=== PATIENT | male | born 1960 | race Caucasian/White ===

== ENCOUNTER 2018-10-27 13:00 | Inpatient (IN) | payer OTHER ==
--- NOTE | 2018-10-27 13:40 | ER Document Report ---
ED NIH Stroke Scale - NIH Stroke Scale *: 1. NIH scale should be completed with appropriate accompanying assessment tools. *: 2. The NIH should reflect what the patient is capable of doing and should not be coached by the clinician. 1a. Level of Consciousness: 0=Alert;keenly responsive -: 1=Drowsy -: 2=Obtunded -: 3=Coma/unresponsive or reflex to noxious stimuli. 1a. Responses: 0 1b. Orientation Questions: a. What month is it? -: b. How old are you? -: 0=Answers both questions correctly. -: 1=Answers one question correctly or patient is intubated or has orotracheal trauma. -: 2=Answers neither question correctly. 1b. Responses: 0 1c. Response to commands: a. Open and close eyes? -: b. Furniture Servicer and release hand? -: Credit is given despite weakness. Demonstration of task is permitted. Substitute command if hands cannot be used. -: 0=Performs both tasks correctly -: 1=Performs one task correctly -: 2=Performs neither task correctly 1c. Responses: 0 2. Gaze: Establish eye contact and instruct patient to "Follow my finger" -: 0=Normal -: 1=Partial gaze palsy. Gaze is abnormal in one or both eyes, but where forced deviation or total gaze paresis is not present. -: 2=Forced deviation or total gaze paresis. 2. Responses: 0 3. Visual Daniels: Sees fingers in all four quadrants. -: 0=No visual loss. -: 1=Partial hemianopsia. -: 2=Complete hemianopsia. -: 3=Bilateral hemianopsia (including Cortical blindness) 3. Responses: 0 4. Facial Movement: Instruct patient to: -: a. Show me your teeth -: b. Raise your eyebrows -: c. Close your eyes -: d. Smile -: 0=Normal symmetrical movement -: 1=Minor paralysis (flattened nasolabial fold, asymmetry on smiling). -: 2=Partial paralysis (total or near total paralysis of lower face). -: 3=Complete paralysis of upper and lower face 4. Responses: 0 5. Motor functions (left arm): Alternate sides and extend each arm with palms down (90 degrees if sitting or 45 degrees for supine). -: 0=No drift;limb holds for full 10 seconds. -: 1=Drift; limb holds but drifts down before full 10 seconds, but does not hit bed. -: 2=Some effort against gravity; limb cannot get to or maintain position. -: 3=No effort against gravity; limb falls. -: 4=No movement. -: UN=Amputation, joint fusion, explain in comments. 5. Responses (left arm): 0 5. Motor Functions (right arm): Alternate sides and extend each arm with palms down (90 degrees if sitting or 45 degrees for supine). -: 0=No drift;limb holds for full 10 seconds. -: 1=Drift; limb holds but drifts down before full 10 seconds, but does not hit bed. -: 2=Some effort against gravity; limb cannot get to or maintain position. -: 3=No effort against gravity; limb falls. -: 4=No movement. -: UN=Amputation, joint fusion, explain in comments. 5. Responses (right arm): 0 6. Motor Functions (left leg): With patient lying supine, alternate sides and extend each leg (30 degrees always while supine). -: 0=No drift, leg holds position for full 5 seconds -: 1=Drift; leg falls before full 5 seconds but does not hit bed. -: 2=Some effort against gravity, leg falls to bed but some effort against gravity. -: 3=No effort against gravity, leg falls to bed immediately. -: 4=No movement. -: UN=Amputation, joint fusion; explain in comments. 6. Responses (left leg): 0 6. Motor Functions (right leg): With patient lying supine, alternate sides and extend each leg (30 degrees always while supine). -: 0=No drift, leg holds position for full 5 seconds -: 1=Drift; leg falls before full 5 seconds but does not hit bed. -: 2=Some effort against gravity, leg falls to bed but some effort against gravity. -: 3=No effort against gravity, leg falls to bed immediately. -: 4=No movement. -: UN=Amputation, joint fusion; explain in comments. 6. Responses (right leg): 1 7. Limb Ataxia: With eyes open instruct patient to: -: a. "Touch your finger to your nose". -: b. "Touch your heel to your mercedes" -: 0=Absent -: 1=Present in one limb. -: 2=Present in two limbs. -: UN=Amputation or joint fusion; explain in comments. 7. Responses: 0 8. Sensory: Test sensation using pinprick or noxious stimuli. Test as many body parts as possible. -: 0=Normal;no sensory loss -: 1=Mile to moderate sensory loss (patient feels pin prick but is less sharp on affected side). -: 2=Severe or total sensory loss. 8. Responses: 0 9. Best Language: Instruct patient to: -: a. "Describe what you see in this picture." -: b. "Name the items in this picture." -: c. "Read these sentences." -: 0=No aphasia, normal -: 1=Mild to moderate aphasia. -: 2=Severe aphasia -: 3=Mute, global aphasia, no usable speech or auditory comprehension. 9. Responses: 0 10. Articulation, Dysarthia: Instruct patient to: -: "Read these words" or "Repeat these words" -: 0=Normal -: 1=Mild to moderate; patient may slur some words but can be understood without difficulty. -: 2=Severe; patients speech so slurred as to be unintelligible in the absence of dysphasia. -: UN=Intubated or other physical barrier, explain in comments. 10. Responses: 0 11. Extinction or inattention: 0=No abnormality -: 1= Visual, tactile, auditory, spatial, or personal inattention or extinction to bilateral simulation in one or the sensory modalities. -: 2=Profound charles-inattention or charles-inattention to more than one modality; does not recognize own hand. 11. Responses: 0 - Right now Total Score: 1
--- NOTE | 2018-10-27 13:42 | ER Document Report ---
ED Medical Screen (RME) - General Chief Complaint: Weakness Stated Complaint: NUMBNESS Time Seen by Provider: 10/27/18 13:34 Mode of Arrival: Wheelchair TRAVEL OUTSIDE OF THE [place] IN LAST 30 DAYS: No - HPI Onset: Yesterday Severity: None Pain Level: Denies Associated Symptoms: Other Exacerbated by: Denies - Falling Relieved by: Denies Similar symptoms previously: Yes Recently seen / treated by doctor: No - Related Data Allergies/Adverse Reactions: No Known Allergies Allergy (Unverified 10/27/18 13:03) Past Medical History - Social History Chew tobacco use (# tins/day): No Frequency of alcohol use: Social Drug Abuse: None - Past Medical History Cardiac Medical History: Reports: Hx Hypertension Renal/ Medical History: Denies: Hx Peritoneal Dialysis Past Surgical History: Reports: Hx Vascular Surgery - bilateral lower extremities Physical Exam - Vital signs Vitals: Temp Pulse Resp BP Pulse Ox 98.3 F 62 18 219/98 H 97 10/27/18 13:14 10/27/18 13:14 10/27/18 13:14 10/27/18 13:14 10/27/18 13:14 Course - Vital Signs Vital signs: Temp Pulse Resp BP Pulse Ox 98.3 F 62 18 219/98 H 97 10/27/18 13:14 10/27/18 13:14 10/27/18 13:14 10/27/18 13:14 10/27/18 13:14
[2018-10-27 14:10] LABS: INTERNATIONAL RATION (INR) 1.08
[2018-10-27 14:11] LABS: PARTIAL THROMBOPLASTIN TIME 31.5 SEC (23.5-35.8)
[2018-10-27 14:13] LABS: APPEARANCE,URINE CLEAR; BILIRUBIN,URINE NEGATIVE (NEGATIVE); COLOR,URINE YELLOW; GLUCOSE, URINE NEGATIVE (NEGATIVE); KETONES,URINE NEGATIVE (NEGATIVE); LEUKOCYTE ESTERASE,URINE NEGATIVE (NEGATIVE); NITRITE,URINE NEGATIVE (NEGATIVE); PROTEIN,URINE NEGATIVE (NEGATIVE); PROTHROMBIN TIME 14.1 SEC (11.4-15.4); URINE SPECIFIC GRAVITY 1.018
[2018-10-27 14:31] LABS: ALANINE AMINOTRANSFERASE 44 U/L (21-72); ALBUMIN 4.9 g/dL (3.5-5.0); ALKALINE PHOSPHATASE 82 U/L (38-126); ANION GAP 10 (5-19); ASPARTATE AMINO TRANSFERASE 43 U/L (17-59); BILIRUBIN,DIRECT 0.3 mg/dL (0.0-0.4); BILIRUBIN,TOTAL 1.6 mg/dL (0.2-1.3); BLOOD UREA NITROGEN 18 mg/dL (7-20); CALCIUM 9.8 mg/dL (8.4-10.2); CARBON DIOXIDE 30 mmol/L (22-30); CHLORIDE 102 mmol/L (98-107); GLUCOSE 88 mg/dL (75-110); POTASSIUM 3.9 mmol/L (3.6-5.0); SODIUM 142.2 mmol/L (137-145); TOTAL PROTEIN 8.5 g/dL (6.3-8.2)
--- NOTE | 2018-10-27 14:31 | RADIOLOGY REPORT (SQ) ---
EXAM DESCRIPTION: CT HEAD WITHOUT COMPLETED DATE/TIME: 10/27/2018 2:06 pm REASON FOR STUDY: Weakness right leg falling started yesterday COMPARISON: None. TECHNIQUE: Axial images acquired through the brain without intravenous contrast. Images reviewed wi th bone, brain and subdural windows. Additional sagittal and coronal reconstructions were generated. Images stored on PACS. All CT scanners at this facility use dose modulation, iterative reconstruction, and/or weight based d osing when appropriate to reduce radiation dose to as low as reasonably achievable (ALARA). [facility]: Dose Right [facility]: CareDose [facility]: Dose Right [facility]: Teradose 4D [facility]: Giraffe Friend RADIATION DOSE: CT Rad equipment meets quality standard of care and radiation dose reduction techniq ues were employed. CTDIvol: 53.2 mGy. DLP: 1070 mGy-cm. mGy. LIMITATIONS: None. FINDINGS: VENTRICLES: Normal size and contour. CEREBRUM: No CT evidence of acute large territory ischemic change, acute intracranial hemorrhage, mas s effect, or midline shift. 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 Moderate bifrontal and biparietal chronic small vessel ischemic change in the hemispheric white matte r CEREBELLUM: No masses. No hemorrhage. No alteration of density. No evidence for acute infarction. EXTRAAXIAL SPACES: No fluid collections. No masses. ORBITS AND GLOBE: No intra- or extraconal masses. Normal contour of globe without masses. CALVARIUM: No fracture. PARANASAL SINUSES: No fluid or mucosal thickening. SOFT TISSUES: No mass or hematoma. OTHER: No other significant finding. IMPRESSION: No acute findings. Significant small vessel disease with white matter, thalamic and basal ganglia infarcts EVIDENCE OF ACUTE STROKE: NO. COMMENT: Quality ID # [id number]: Final reports with documentation of one or more dose reduction techniques (e.g., Automated exposure control, adjustment of the mA and/or kV according to patient size, use of iterative reconstruction technique) TECHNICAL DOCUMENTATION: JOB ID: [id number] [employer]- All Rights Reserved Reading location - IP/workstation name: [email or web address]
[2018-10-27 16:15] LABS: ABSOLUTE LYMPHOCYTES (AUTO) 2.5 10^3/uL (0.5-4.7); ABSOLUTE MONOCYTES (AUTO) 0.3 10^3/uL (0.1-1.4); ABSOLUTE NEUT (AUTO) 1.8 10^3/uL (1.7-8.2); BASOPHILS % (AUTO) 0.2 % (0-2); EOSINOPHILS % (AUTO) 0.4 % (0-6); HEMATOCRIT 40.6 % (37.9-51.0); HEMOGLOBIN 13.7 g/dL (13.5-17.0); LYMPHOCYTES % (AUTO) 54.7 % (13-45); MEAN CORPUSCULAR HEMOGLOBIN 37.6 pg (27.0-33.4); MEAN CORPUSCULAR HGB CONC 33.8 g/dL (32.0-36.0); MONOCYTES % (AUTO) 6.6 % (3-13); RED BLOOD COUNT 3.65 10^6/uL (4.35-5.55); RED CELL DISTRIBUTION WIDTH 17.7 % (11.5-14.0); SEGMENTED NEUTROPHILS % (AUTO) 38.1 % (42-78); TOTAL CELLS COUNTED % (AUTO) 100 %; WHITE BLOOD COUNT 4.7 10^3/uL (4.0-10.5)
[2018-10-27 16:33] LABS: PLATELET COUNT 40 10^3/uL (150-450)
[2018-10-27 16:34] LABS: MEAN CORPUSCULAR VOLUME 111 fl (80-97)
[2018-10-27 16:37] LABS: ANISOCYTOSIS 2+; OVALOCYTES SLIGHT; PLATELET COMMENT DECREASED; POLYCHROMASIA SLIGHT; SCHISTOCYTES SLIGHT; STOMATOCYTES 1+
[2018-10-27] MEDS ORDERED: NICARDIPINE HCL RTU, ISO-OS 20 MG/200 ML RTUINJ IV PRN ×2 (19:01→22:23)
--- NOTE | 2018-10-27 20:07 | ER Document Report ---
ED General - General Chief Complaint: Weakness Stated Complaint: NUMBNESS Time Seen by Provider: 10/27/18 13:34 Primary Care Provider: ALEXEI FUENTES MD [Primary Care Provider] - Follow up as needed Mode of Arrival: Wheelchair TRAVEL OUTSIDE OF THE [place] IN LAST 30 DAYS: No - HPI Notes: Patient is a 4-year-old male who presents to the emergency department for evaluation of right-sided weakness. He states that about 3:00 yesterday afternoon, he noted that his right leg "was not working right." He still kept going on with his day. He did have some weakness in his right arm as well. He states he woke this morning and it was worse. He has been having falls as a result of this. Denies any pain. He denies any difficulty seeing, speaking, swallowing. He states he has had weakness and falls in the past, but denies any known focal deficits in the past. He admits that he is supposed to take high blood pressure medication, and he is not compliant with it. He initially states "I just could not find it." He does, however, have the bottle with him. - Related Data Allergies/Adverse Reactions: No Known Allergies Allergy (Unverified 10/27/18 13:03) Home Medications: irbesartan Past Medical History - General Information source: Patient - Social History Smoking Status: Current Every Day Smoker Chew tobacco use (# tins/day): No Frequency of alcohol use: None - Patient quit drinking 2 years ago, admits he was a heavy drinker in the past, has been told he has cirrhosis. Drug Abuse: None Family History: DM, Hypertension Patient has suicidal ideation: No Patient has homicidal ideation: No - Past Medical History Cardiac Medical History: Reports: Hx Hypertension Renal/ Medical History: Denies: Hx Peritoneal Dialysis GI Medical History: Reports: Hx Cirrhosis Past Surgical History: Reports: Hx Vascular Surgery - bilateral lower extremities Review of Systems - Review of Systems Constitutional: No symptoms reported EENT: No symptoms reported Cardiovascular: No symptoms reported Respiratory: No symptoms reported Gastrointestinal: No symptoms reported Genitourinary: No symptoms reported Musculoskeletal: No symptoms reported Skin: No symptoms reported Neurological/Psychological: See HPI Physical Exam - Vital signs Vitals: Temp Pulse Resp BP Pulse Ox 98.3 F 62 18 219/98 H 97 10/27/18 13:14 10/27/18 13:14 10/27/18 13:14 10/27/18 13:14 10/27/18 13:14 - Notes Notes: Vital signs reviewed, please refer to chart. Head is normocephalic, atraumatic. Pupils equal round, reactive to light. Neck is supple without meningismus. Heart is regular rate and rhythm. Lungs are clear to auscultation bilaterally. Abdomen is soft, nontender, normoactive bowel sounds throughout. Extremities without cyanosis, clubbing. Posterior calves are nontender. Peripheral pulses are equal. Skin is warm and dry. Patient is awake, alert, oriented x3. Cranial nerves II through XII are grossly intact without focal neurological deficits. Strength is plus 5 out of 5 left upper and left lower extremity. Patient does have 4 out of 5 dry paste supervisor strength on the right upper extremity, 3 out of 5 strength in the right lower extremity. Sensation is intact throughout. Pronator drift on the right noted. Mild hyperreflexia on the right as well. Intact [id number], rapid alternating movements, unable to perform [id number]-wt-agum on the right, intact on the left. Course - Re-evaluation Re-evalutation: 10/27/18 20:06 Patient is a 4-year-old male who presents to the emergency department for evaluation of right-sided weakness and frequent falls. Says symptoms have been present for greater than 24 hours at the time of my evaluation. Patient does not fact have right-sided weakness, right pronator drift. Laboratory investigations and imaging were as ordered through triage. Laboratory investigations revealed a low platelet count, elevated bilirubin. This is consistent with his diagnosis of cirrhosis. The remainder of his laboratory i nvestigations are unremarkable. CT scan did reveal multiple old infarcts, nothing acute. Patient's blood pressure was markedly elevated. He admits to me that he has not taken his blood pressure medication in over a month. My concern would be that this is a possible hypertensive encephalopathy, rather than an acute stroke. Patient was started on nicardipine drip. We will continue to follow. 10/27/18 20:47 Nicardipine drip started, no significant change in patient's neurological status. I spoke with Dr. Chaney, who will admit the patient. I am still unable to definitively rule out hypertensive encephalopathy versus CVA, patient will likely get an MRI tomorrow, and they will continue to titrate nicardipine to evaluate for effect. As he is currently on the nicardipine drip to treat his blood pressure, he will require ICU admission. - Vital Signs Vital signs: Temp Pulse Resp BP Pulse Ox 97.9 F 62 13 219/98 H 97 10/27/18 17:26 10/27/18 13:14 10/27/18 17:13 10/27/18 13:14 10/27/18 17:13 - Laboratory Result Diagrams: 10/27/18 15:41 10/27/18 13:45 Laboratory results interpreted by me: 10/27/18 10/27/18 10/27/18 13:45 13:45 15:41 RBC 3.65 L MCV 111 H MCH 37.6 H RDW 17.7 H Plt Count 40 L Seg Neutrophils % 38.1 L Lymphocytes % 54.7 H Total Bilirubin 1.6 H Total Protein 8.5 H Urine Urobilinogen 2.0 H - Diagnostic Test Radiology reviewed: Reports reviewed Radiology results interpreted by me: 10/27/18 20:[address] 10/27/18 13:34 IMPRESSION: No acute findings. Significant small vessel disease with white matter, thalamic and basal ganglia infarcts EVIDENCE OF ACUTE STROKE: NO. - EKG Interpretation by Me Additional EKG results interpreted by me: 10/27/18 20:50 Sinus bradycardia with a rate of 59 bpm. Left axis deviation, IVCD. Number specific ST changes, but no acute changes concerning for ischemia or infarction. No old studies available for comparison. Discharge - Discharge Clinical Impression: Hypertensive emergency CVA (cerebrovascular accident) Qualifiers: CVA mechanism: unspecified Qualified Code(s): I63.9 - Cerebral infarction, unspecified Condition: Stable Disposition: ADMITTED INPATIENT Admitting Provider: Ritu (Hospitalist) Unit Admitted: ICU Referrals: ALEXEI FUENTES MD [Primary Care Provider] - Follow up as needed
--- NOTE | 2018-10-27 22:16 | RADIOLOGY REPORT (SQ) ---
EXAM DESCRIPTION: [facility]: XR HIP 2 OR MORE VIEWS Views: 2, AP pelvis and additional view of the right hip CLINICAL HISTORY: 58 years Male, fall; right hip pain COMPARISON: None. FINDINGS: Pelvic alignment is anatomic. No diastasis. No acute fracture. Right iliac stent and bilateral inguinal surgical clips are noted. There are extensive vascular calcifications. Right hip: No fracture or dislocation. IMPRESSION: 1. No acute findings. 2. Atherosclerosis
[2018-10-27] MEDS ORDERED: ACETAMINOPHEN 325 MG TABLET PO PRN (22:23)
[2018-10-27] MEDS ORDERED: ACETAMINOPHEN 650 MG SUPP.RECT PR PRN (22:23)
[2018-10-27] MEDS ORDERED: DOCUSATE SODIUM 100 MG CAPSULE PO PRN (22:23)
[2018-10-27] MEDS ORDERED: MAGNESIUM HYDROXIDE SUSP 30 ML UDCUP PO PRN (22:23)
[2018-10-27] MEDS ORDERED: ONDANSETRON 4 MG TAB.RAPDIS PO PRN (22:23)
[2018-10-27] MEDS ORDERED: ONDANSETRON HCL INJ/PF 4 MG/2 ML SDV IV PRN (22:23)
[2018-10-27] MEDS ORDERED: LEVALBUTEROL HCL NEB 0.63 MG/3 ML AMPUL NEB PRN (22:38)
[2018-10-27] MEDS ORDERED: NALBUPHINE HCL INJ 10 MG/1 ML AMPULE IV PRN (22:38)
[2018-10-27] MEDS ORDERED: NICOTINE 21 MG/24 HR PATCH.TD24 TD PRN (22:38)
[2018-10-27] MEDS: TEMAZEPAM 15 MG CAPSULE PO PRN (22:55)
--- NOTE | 2018-10-27 22:58 | EKG REPORT ---
SEVERITY:- ABNORMAL ECG - SINUS RHYTHM NONSPECIFIC INTRAVENTRICULAR CONDUCTION DELAY : Confirmed by: Zane Rogers 27-Oct-2018 22:57:48
[2018-10-27] MEDS ORDERED: POTASSI CL IV ONE ×2 (23:00)
[2018-10-27] MEDS ORDERED: FAMOTIDINE 20 MG TABLET PO ONE (23:00)
[2018-10-27] MEDS ORDERED: THIAMINE HCL IV ONE ×2 (23:00)
[2018-10-27] MEDS ORDERED: NS IV ONE ×2 (23:00)
[2018-10-27] MEDS ORDERED: MAGNESIUM SULFATE INJ 8 MEQ/2 ML IV ONE (23:00)
[2018-10-27] MEDS ORDERED: MVI, ADULT NO.1 WITH VIT K INJ 10 ML VIAL IV ONE (23:00)
[2018-10-27] MEDS ORDERED: ATORVASTATIN CALCIUM 40 MG TABLET PO ONE (23:00)
[2018-10-27] MEDS: HYDRALAZINE HCL INJ/PF 20 MG/1 ML SDV IV PRN (23:09)
[2018-10-27 23:20] LABS: CREATINE KINASE MB 0.98 ng/mL (<4.55)
[2018-10-27 23:22] LABS: TROPONIN I < 0.012 ng/mL
[2018-10-27 23:26] LABS: FREE T3 4.09 pg/mL (2.77-5.27); FREE T4 (FREE THYROXINE) 1.23 ng/dL (0.78-2.19)
[2018-10-28] MEDS ORDERED: ATORVASTATIN CALCIUM 40 MG TABLET PO ONE (00:40)
[2018-10-28] MEDS ORDERED: CYANOCOBALAMIN (VITAMIN B-12) INJ 1000 MCG/1 ML VIAL IM ONE ×2 (00:40→03:00)
[2018-10-28] MEDS ORDERED: FOLIC ACID 1 MG TABLET PO ONE (00:45)
[2018-10-28] MEDS ORDERED: THIAMINE HCL INJ 200 MG/2 ML VIAL IM ONE ×2 (00:45→03:00)
[2018-10-28] MEDS ORDERED: METOPROLOL TARTRATE PF/INJ 5 MG/5 ML SDV IV PRN (01:33)
--- NOTE | 2018-10-28 01:46 | PDOC H&P ---
History of Present Illness Admission Date/PCP: 10/27/18 21:01 ALEXEI FUENTES MD Patient complains of: Right-sided weakness History of Present Illness: DARIA PATEL is a 58 year old [id number] male who presents the emergency room with a 1 day history of right-sided weakness. He admits that at about 3 PM yesterday afternoon he was at work and noticed that his right leg was weak and not supporting him correctly as he walked. He pushed on to finish the rest of the day at work noticing that he had also developed some lifting weakness in his right arm. The symptoms persisted after work and he went home and eventually went to bed waking this morning with worse weakness of the right upper and lower extremities then previous. He tried to get up out of bed and fell without injury. He admits to not taking his high blood pressure medication for the past few weeks. He denies prior similar symptoms of focal weakness and has not identified any aggravating or ameliorating factors for his weakness. In the emergency room he was found to have right-sided weakness with a negative CT scan of the head for acute bleed or obvious infarction. He was also noted to have uncontrolled hypertension and was placed on a nicardipine infusion to control his hypertension. He was subsequently admitted to the hospital for further evaluation and treatment. Past Medical History Cardiac Medical History: Reports: Hypertension, Peripheral Vascular Disease Denies: Atrial Fibrillation, Congestive Heart Failure, Coronary Artery Disease, DVT, Myocardial Infarction, Hyperlipidema, Pulmonary Embolism Pulmonary Medical History: Denies: Asthma, Chronic Obstructive Pulmonary Disease (COPD), Respiratory Failure EENT Medical History: Denies: Cataracts, Ears - Hearing aids Neurological Medical History: Denies: Hemorrhagic CVA, Ischemic CVA, Multiple Sclerosis, Seizures Endocrine Medical History: Reports: Obesity Denies: Diabetes Mellitus Type 1, Diabetes Mellitus Type 2, Hyperthyroidism, Hypothyroidism Renal/ Medical History: Denies: Chronic Kidney Disease, Nephrolithiasis Malignancy Medical History: Reports: None GI Medical History: Denies: Cirrhosis, Crohn's Disease, Hepatitis, Ulcerative Colitis Musculoskeltal Medical History: Denies: Arthritis, Gout Skin Medical History: Denies: Eczema, Psoriasis Psychiatric Medical History: Reports: Tobacco Dependency Denies: Alcohol Dependency, Substance Abuse Traumatic Medical History: Reports: None Hematology: Denies: Anemia, Bleeding Tendencies Infectious Medical History: Reports: None Past Surgical History Past Surgical History: Reports: Vascular Surgery - bilateral lower extremities Social History Information Source: Patient Lives with: Spouse/Significant other Smoking Status: Current Every Day Smoker Frequency of Alcohol Use: Social Hx Recreational Drug Use: No Drugs: None Hx Prescription Drug Abuse: No - Advance Directive Resuscitation Status: Full Code Surrogate healthcare decision maker:: Any Patel his Family History Family History: DM, Hypertension Parental Family History Reviewed: Yes Children Family History Reviewed: No Sibling(s) Family History Reviewed.: Yes Medication/Allergy Allergies/Adverse Reactions: No Known Allergies Allergy (Unverified 10/27/18 13:03) Review of Systems Constitutional: ABSENT: chills, fever(s) Eyes: ABSENT: visual disturbances, other - Eye pain Ears: ABSENT: hearing changes, other - Ear pain Nose, Mouth, and Throat: ABSENT: mouth pain, sore throat Cardiovascular: ABSENT: chest pain, palpitations Respiratory: ABSENT: cough, dyspnea Gastrointestinal: ABSENT: abdominal pain, constipation, diarrhea, dysphagia, melena, vomiting Genitourinary: ABSENT: dysuria, hematuria Musculoskeletal: ABSENT: back pain, joint swelling, muscle weakness Integumentary: ABSENT: pruritus, rash Neurological: PRESENT: as per HPI, abnormal gait, focal weakness, lack of coordination. ABSENT: abnormal movements, abnormal speech, confusion, convulsions, dizziness, memory loss, numbness, paresthesias, syncope, tremor(s), vertigo Psychiatric: ABSENT: anxiety, depression Endocrine: ABSENT: cold intolerance, heat intolerance Hematologic/Lymphatic: ABSENT: easy bleeding, easy bruising Physical Exam Vital Signs: Temp Pulse Resp BP Pulse Ox 97.9 F 62 13 219/98 H 97 10/27/18 17:26 10/27/18 13:14 10/27/18 17:13 10/27/18 13:14 10/27/18 17:13 Intake & Output 10/25/18 10/26/18 10/27/18 23:59 23:59 23:59 Weight 85.9 kg General appearance: PRESENT: no acute distress, cooperative, obese Head exam: PRESENT: atraumatic, normocephalic Eye exam: PRESENT: EOMI. ABSENT: conjunctival injection, nystagmus, scleral i cterus Ear exam: PRESENT: normal external ear exam. ABSENT: bleeding, drainage Mouth exam: PRESENT: dry mucosa, neck supple Neck exam: ABSENT: JVD, thyromegaly, tracheal deviation Respiratory exam: PRESENT: clear to auscultation bruno, symmetrical, unlabored Cardiovascular exam: PRESENT: RRR. ABSENT: clicks, gallop, rubs Pulses: PRESENT: normal radial pulses, normal dorsalis pedis pul Vascular exam: PRESENT: normal capillary refill. ABSENT: pallor GI/Abdominal exam: PRESENT: normal bowel sounds, soft. ABSENT: tenderness Rectal exam: PRESENT: deferred Extremities exam: ABSENT: joint swelling, pedal edema, tenderness Musculoskeletal exam: ABSENT: deformity, dislocation Neurological exam: PRESENT: alert, oriented to person, oriented to place, oriented to time, oriented to situation, CN II-XII grossly intact, motor sensory deficit - Weakness of right upper and lower extremities noted by comparison to left on gross exam. Psychiatric exam: PRESENT: appropriate affect, normal mood Skin exam: PRESENT: dry, intact, warm. ABSENT: jaundice, rash, urticaria Results Laboratory Results: 10/27/18 15:41 10/27/18 13:45 10/27/18 10/27/18 10/27/18 13:45 13:45 13:45 WBC Cancelled RBC Cancelled Hgb Cancelled Hct Cancelled MCV Cancelled MCH Cancelled MCHC Cancelled RDW Cancelled Plt Count Cancelled Seg Neutrophils % Cancelled Lymphocytes % Cancelled Monocytes % Cancelled Eosinophils % Cancelled Basophils % Cancelled Absolute Neutrophils Cancelled Absolute Lymphocytes Cancelled Absolute Monocytes Cancelled Absolute Eosinophils Cancelled Absolute Basophils Cancelled Sodium 142.2 Potassium 3.9 Chloride 102 Carbon Dioxide 30 Anion Gap 10 BUN 18 Creatinine 1.06 Est GFR ( Amer) > 60 Est GFR (Non-Af Amer) > 60 Glucose 88 Calcium 9.8 Total Bilirubin 1.6 H AST 43 ALT 44 Alkaline Phosphatase 82 Total Protein 8.5 H Albumin 4.9 Urine Color YELLOW Urine Appearance CLEAR Urine pH 7.0 Ur Specific [place] 1.018 Urine Protein NEGATIVE Urine Glucose (UA) NEGATIVE Urine Ketones NEGATIVE Urine Blood NEGATIVE Urine Nitrite NEGATIVE Ur Leukocyte Esterase NEGATIVE Urine WBC (Auto) 1 Urine RBC (Auto) 3 10/27/18 15:41 WBC 4.7 RBC 3.65 L Hgb 13.7 Hct 40.6 MCV 111 H MCH 37.6 H MCHC 33.8 RDW 17.7 H Plt Count 40 L Seg Neutrophils % 38.1 L Lymphocytes % 54.7 H Monocytes % 6.6 Eosinophils % 0.4 Basophils % 0.2 Absolute Neutrophils 1.8 Absolute Lymphocytes 2.5 Absolute Monocytes 0.3 Absolute Eosinophils 0.0 Absolute Basophils 0.0 Sodium Potassium Chloride Carbon Dioxide Anion Gap BUN Creatinine Est GFR ( Amer) Est GFR (Non-Af Amer) Glucose Calcium Total Bilirubin AST ALT Alkaline Phosphatase Total Protein Albumin Urine Color Urine Appearance Urine pH Ur Specific [place] Urine Protein Urine Glucose (UA) Urine Ketones Urine Blood Urine Nitrite Ur Leukocyte Esterase Urine WBC (Auto) Urine RBC (Auto) 10/27/18 13:45 CK-MB (CK-2) 1.12 Impressions: Head CT 10/27/18 13:34 IMPRESSION: No acute findings. Significant small vessel disease with white matter, thalamic and basal ganglia infarcts EVIDENCE OF ACUTE STROKE: NO. Assessment and Plan - Diagnosis (1) Neurologic deficit due to acute ischemic cerebrovascular accident (CVA) Is this a current diagnosis for this admission?: Yes Plan: Patient will be admitted to the [facility] and he will be placed on the stroke protocol for evaluation. He will have an MRI of the brain, a carotid Doppler evaluation and an echocardiogram performed. He will be evaluated and treated by the stroke team including PT, OT and speech therapy. (2) Hypertensive emergency Is this a current diagnosis for this admission?: Yes Plan: Patient will be admitted to the [facility] and hydralazine as well as metoprolol will be given every 4 hours intravenously as needed to establish adequate blood pressure control (160/100). Patient will be restarted on oral antihypertensives in the AM. Daily CBC, metabolic profile and magnesium levels will be obtained as part of his ongoing evaluation. His blood pressure will be monitored closely throughout the remainder of his hospital course. (3) Tobacco use disorder, severe, dependence Is this a current diagnosis for this admission?: Yes Plan: Smoking cessation has been advised and counseled briefly. Nicotine patch will be available to the patient for his use if he desires. (4) Obesity (BMI 30-39.9) Is this a current diagnosis for this admission?: Yes Plan: Consultation with dietitian will be obtained for providing the patient with better dietary choices and better lifestyle choices for a longer and healthier life. - Time Time Spent with patient: 25-34 minutes Smoking Cessation Education: 3 to 10 minutes Medications reviewed and adjusted accordingly: Yes - Not taking medications Anticipated discharge: Acute Rehab - Inpatient Certification Based on my medical assessment, after consideration of the patient's comorbidities, presenting symptoms, or acuity I expect that the services needed warrant INPATIENT care.: Yes I certify that my determination is in accordance with my understanding of Medicare's requirements for reasonable and necessary INPATIENT services [42 CFR 412.3e].: Yes Medical Necessity: Significant Comorbidiites Make Outpatient Treatment Too Risky, Need Close Monitoring Due to Risk of Patient Decompensation, Need For Continuous Telemetry Monitoring, Need for Neurological Checks, Risk of Complication if Not Cared For in Hospital
--- NOTE | 2018-10-28 01:49 | ADVANCED CARE ---
- Diagnosis (1) Neurologic deficit due to acute ischemic cerebrovascular accident (CVA) Diagnosis Current: Yes (2) Hypertensive emergency Diagnosis Current: Yes (3) Tobacco use disorder, severe, dependence Diagnosis Current: Yes (4) Obesity (BMI 30-39.9) Diagnosis Current: Yes Attendance: Patient and myself Resuscitation Status: Full Code Discussion: After discussion the patient is determined he wishes to remain full code resuscitation status as his CODE STATUS for the remainder of his hospital course in the event over cardiac or respiratory arrest. Additionally he has named Any Franklin his as his designated surrogate medical decision-maker. He was not interested in discussing living Lopez at the time of our talk. Care Planning Goals: 1. Patient remain a full code resuscitation CODE STATUS for the remainder of his hospital course 2. Any Franklin will be designated as the patient's surrogate medical decision maker. Document(s) Completed: The following entries will be made in the patient's current medical orders and permanent medical record via EMR entry: 1. Patient remain a full code resuscitation CODE STATUS for the remainder of his hospital course 2. Any Franklin will be designated as the patient's surrogate medical decision maker. Time Spent: 7 minutes
[2018-10-28 01:58] LABS: FOLATE 10.4 ng/mL (>2.76)
[2018-10-28] MEDS ORDERED: METOPROLOL TARTRATE PF/INJ 5 MG/5 ML SDV IV SCH (02:00)
[2018-10-28] MEDS ORDERED: NS IV ONE ×2 (03:00)
[2018-10-28] MEDS ORDERED: THIAMINE HCL IV ONE ×2 (03:00)
[2018-10-28] MEDS ORDERED: MAGNESIUM SULFATE INJ 8 MEQ/2 ML IV ONE (03:00)
[2018-10-28] MEDS ORDERED: FAMOTIDINE 20 MG TABLET PO ONE (03:00)
[2018-10-28] MEDS ORDERED: POTASSI CL IV ONE ×2 (03:00)
[2018-10-28] MEDS ORDERED: MVI, ADULT NO.1 WITH VIT K INJ 10 ML VIAL IV ONE ×2 (03:00→03:08)
[2018-10-28 05:02] LABS: HEMATOCRIT 38.5 % (37.9-51.0); HEMOGLOBIN 13.3 g/dL (13.5-17.0); MEAN CORPUSCULAR HEMOGLOBIN 37.8 pg (27.0-33.4); MEAN CORPUSCULAR HGB CONC 34.5 g/dL (32.0-36.0); MEAN CORPUSCULAR VOLUME 110 fl (80-97); RED BLOOD COUNT 3.51 10^6/uL (4.35-5.55); RED CELL DISTRIBUTION WIDTH 17.1 % (11.5-14.0); WHITE BLOOD COUNT 4.8 10^3/uL (4.0-10.5)
[2018-10-28 05:21] LABS: ANION GAP 10 (5-19); BLOOD UREA NITROGEN 17 mg/dL (7-20); CALCIUM 9.6 mg/dL (8.4-10.2); CARBON DIOXIDE 23 mmol/L (22-30); CHLORIDE 104 mmol/L (98-107); CHOLESTEROL 203.15 mg/dL (0-200); CREATINE KINASE 192 U/L (55-170); GLUCOSE 110 mg/dL (75-110); POTASSIUM 3.7 mmol/L (3.6-5.0); SODIUM 137.4 mmol/L (137-145); TRIGLYCERIDES 247 mg/dL (<150)
[2018-10-28 05:35] LABS: CREATINE KINASE MB 1.42 ng/mL (<4.55); DIRECT LDL 119 mg/dL (<100)
[2018-10-28 05:36] LABS: VLDL CHOLESTEROL 49.4 mg/dL (10-31)
[2018-10-28 05:37] LABS: PLATELET COUNT 33 10^3/uL (150-450); TROPONIN I < 0.012 ng/mL
[2018-10-28] MEDS ORDERED: HEPARIN SOD (PORCINE) 5,000 UNIT/ML 1 ML SYRINGE SUBCUT SCH (06:00)
[2018-10-28] MEDS: HYDRALAZINE HCL INJ/PF 20 MG/1 ML SDV IV PRN (06:45)
--- NOTE | 2018-10-28 09:33 | PDOC PROGRESS REPORT ---
Subjective Progress Note for:: 10/28/18 Subjective:: 58 year old [id number] male who presents the emergency room with a 1 day history of right-sided weakness. He admits that at about 3 PM yesterday afternoon he was at work and noticed that his right leg was weak and not supporting him correctly as he walked. He pushed on to finish the rest of the day at work noticing that he had also developed some lifting weakness in his right arm. The symptoms persisted after work and he went home and eventually went to bed waking this morning with worse weakness of the right upper and lower extremities then previous. He tried to get up out of bed and fell without injury. He admits to not taking his high blood pressure medication for the past few weeks. He denies prior similar symptoms of focal weakness and has not identified any aggravating or ameliorating factors for his weakness. In the emergency room he was found to have right-sided weakness with a negative CT scan of the head for acute bleed or obvious infarction. He was also noted to have uncontrolled hypertension and was placed on a nicardipine infusion to control his hypertension. He was subsequently admitted to the hospital for further eval uation and treatment. Reason For Visit: HYPERTENSIVE EMERGENCY, ACUTE LEFT MIDDLE CEREBRAL Physical Exam Vital Signs: Temp Pulse Resp BP Pulse Ox 97.7 F 87 20 189/74 H 100 10/28/18 07:48 10/28/18 08:00 10/28/18 08:00 10/28/18 08:00 10/28/18 08:00 Intake & Output 10/27/18 10/28/18 10/29/18 06:59 06:59 06:59 Intake Total 110 Balance 110 Weight 80 kg General appearance: PRESENT: no acute distress, cooperative, well-nourished Head exam: PRESENT: atraumatic Eye exam: PRESENT: PERRLA Mouth exam: PRESENT: moist, tongue midline Teeth exam: PRESENT: poor dentation Neck exam: ABSENT: carotid bruit, JVD, lymphadenopathy, thyromegaly Respiratory exam: PRESENT: decreased breath sounds Cardiovascular exam: PRESENT: RRR. ABSENT: diastolic murmur, rubs, systolic murmur GI/Abdominal exam: PRESENT: normal bowel sounds, soft. ABSENT: distended, guarding, mass, organolmegaly, rebound, tenderness Rectal exam: PRESENT: deferred Extremities exam: PRESENT: full ROM. ABSENT: calf tenderness, clubbing, pedal edema Neurological exam: PRESENT: alert, awake, oriented to person, oriented to place, oriented to time, oriented to situation, other - Patient has right-sided weakness power in the right upper extremity is 2 /5 right lower extremity is 2/ 5 also. Psychiatric exam: PRESENT: appropriate affect, normal mood. ABSENT: homicidal ideation, suicidal ideation Results Laboratory Results: 10/28/18 04:40 10/28/18 04:40 10/27/18 10/27/18 10/27/18 13:45 13:45 13:45 WBC Cancelled RBC Cancelled Hgb Cancelled Hct Cancelled MCV Cancelled MCH Cancelled MCHC Cancelled RDW Cancelled Plt Count Cancelled Seg Neutrophils % Cancelled Lymphocytes % Cancelled Monocytes % Cancelled Eosinophils % Cancelled Basophils % Cancelled Absolute Neutrophils Cancelled Absolute Lymphocytes Cancelled Absolute Monocytes Cancelled Absolute Eosinophils Cancelled Absolute Basophils Cancelled Sodium 142.2 Potassium 3.9 Chloride 102 Carbon Dioxide 30 Anion Gap 10 BUN 18 Creatinine 1.06 Est GFR ( Amer) > 60 Est GFR (Non-Af Amer) > 60 Glucose 88 Calcium 9.8 Magnesium Total Bilirubin 1.6 H AST 43 ALT 44 Alkaline Phosphatase 82 Total Protein 8.5 H Albumin 4.9 Triglycerides Cholesterol LDL Cholesterol Direct VLDL Cholesterol HDL Cholesterol Vitamin B12 Folate TSH Free T4 Free T3 pg/mL Urine Color YELLOW Urine Appearance CLEAR Urine pH 7.0 Ur Specific Daisy 1.018 Urine Protein NEGATIVE Urine Glucose (UA) NEGATIVE Urine Ketones NEGATIVE Urine Blood NEGATIVE Urine Nitrite NEGATIVE Ur Leukocyte Esterase NEGATIVE Urine WBC (Auto) 1 Urine RBC (Auto) 3 10/27/18 10/27/18 10/27/18 15:41 22:40 22:40 WBC 4.7 RBC 3.65 L Hgb 13.7 Hct 40.6 MCV 111 H MCH 37.6 H MCHC 33.8 RDW 17.7 H Plt Count 40 L Seg Neutrophils % 38.1 L Lymphocytes % 54.7 H Monocytes % 6.6 Eosinophils % 0.4 Basophils % 0.2 Absolute Neutrophils 1.8 Absolute Lymphocytes 2.5 Absolute Monocytes 0.3 Absolute Eosinophils 0.0 Absolute Basophils 0.0 Sodium Potassium Chloride Carbon Dioxide Anion Gap BUN Creatinine Est GFR ( Amer) Est GFR (Non-Af Amer) Glucose Calcium Magnesium Total Bilirubin AST ALT Alkaline Phosphatase Total Protein Albumin Triglycerides Cholesterol LDL Cholesterol Direct VLDL Cholesterol HDL Cholesterol Vitamin B12 202.0 L Folate 10.40 TSH Free T4 1.23 Free T3 pg/mL 4.09 Urine Color Urine Appearance Urine pH Ur Specific Daisy Urine Protein Urine Glucose (UA) Urine Ketones Urine Blood Urine Nitrite Ur Leukocyte Esterase Urine WBC (Auto) Urine RBC (Auto) 10/28/18 10/28/18 10/28/18 04:40 04:40 04:40 WBC 4.8 RBC 3.51 L Hgb 13.3 L Hct 38.5 MCV 110 H MCH 37.8 H MCHC 34.5 RDW 17.1 H Plt Count 33 L Seg Neutrophils % Lymphocytes % Monocytes % Eosinophils % Basophils % Absolute Neutrophils Absolute Lymphocytes Absolute Monocytes Absolute Eosinophils Absolute Basophils Sodium 137.4 Potassium 3.7 Chloride 104 Carbon Dioxide 23 Anion Gap 10 BUN 17 Creatinine 1.11 Est GFR ( Amer) > 60 Est GFR (Non-Af Amer) > 60 Glucose 110 Calcium 9.6 Magnesium 2.0 Total Bilirubin AST ALT Alkaline Phosphatase Total Protein Albumin Triglycerides 247 H Cholesterol 203.15 H LDL Cholesterol Direct 119 H VLDL Cholesterol 49.4 H HDL Cholesterol 32 L Vitamin B12 Folate TSH 4.06 Free T4 Free T3 pg/mL Urine Color Urine Appearance Urine pH Ur Specific Daisy Urine Protein Urine Glucose (UA) Urine Ketones Urine Blood Urine Nitrite Ur Leukocyte Esterase Urine WBC (Auto) Urine RBC (Auto) 10/27/18 10/27/18 10/27/18 13:45 22:40 22:40 Creatine Kinase 170 CK-MB (CK-2) 1.12 0.98 Troponin I < 0.012 10/28/18 10/28/18 04:40 04:40 Creatine Kinase 192 H CK-MB (CK-2) 1.42 Troponin I < 0.012 Impressions: Hip/Pelvis X-Ray 10/27/18 00:00 IMPRESSION: 1. No acute findings. 2. Atherosclerosis Head CT 10/27/18 13:34 IMPRESSION: No acute findings. Significant small vessel disease with white matter, thalamic and basal ganglia infarcts EVIDENCE OF ACUTE STROKE: NO. Assessment and Plan - Diagnosis (1) CVA (cerebrovascular accident) Qualifiers: CVA mechanism: unspecified Qualified Code(s): I63.9 - Cerebral infarction, unspecified Is this a current diagnosis for this admission?: Yes Plan: Patient will be admitted to the [facility] and he will be placed on the stroke protocol for evaluation. He will have an MRI of the brain, a carotid Doppler evaluation and an echocardiogram performed. He will be evaluated and treated by the stroke team including PT, OT and speech therapy. 10/28/[id number]-jjsy-old male with multiple medical problems including hypertension, cirrhosis of the liver admitted with right-sided weakness CT head was negative for acute pathology he has multiple stents placement in the lower extremities and the above aortic waiting for the further information from [place] about the stents prior to doing the MRI. In the meantime we are going to do the CTA of the neck and head today. PT consult OT consult rehab consult was requested. Patient platelet count is 33,000 because of the risk of bleeding he is not getting heparin or Plavix. Presently receiving simvastatin. Lipid panel was done. Aspiration fall seizure precautions are requested. GI prophylaxis was initiated. (2) Hypertensive emergency Is this a current diagnosis for this admission?: Yes Plan: Patient will be admitted to the [facility] and hydralazine as well as metoprolol will be given every 4 hours intravenously as needed to establish adequate blood pressure control (160/100). Patient will be restarted on oral antihypertensives in the AM. Daily CBC, metabolic profile and magnesium levels will be obtained as part of his ongoing evaluation. His blood pressure will be monitored closely throughout the remainder of his hospital course. 10/28/2018-patient's blood pressures are still elevated this morning he is on IV hydralazine as needed and metoprolol IV as needed. Blood pressure this morning is 180/95 started on amlodipine 10 mg daily and lisinopril 10 mg daily. To continue to closely monitor his blood pressures. Also plan is to not to rapidly bring the blood pressure close to normal. (3) Obesity (BMI 30-39.9) Is this a current diagnosis for this admission?: Yes Plan: Consultation with dietitian will be obtained for providing the patient with better dietary choices and better lifestyle choices for a longer and healthier life. 10/28/2018-diet exercise lifestyle modifications are discussed with the patient. Dietary consult was in place. (4) Tobacco use disorder, severe, dependence Is this a current diagnosis for this admission?: Yes Plan: Smoking cessation has been advised and counseled briefly. Nicotine patch will be available to the patient for his use if he desires. 10/28/2018-patient is a chronic smoker with history of more than 40 years of smoking. Smoking counseling was advised again today. (5) Acquired thrombocytopenia Is this a current diagnosis for this admission?: Yes Plan: 10/28/2018-patient's platelet count is 33,000 today most likely secondary to cirrhosis of the liver. (6) Cirrhosis of liver Is this a current diagnosis for this admission?: No Plan: 10/28/2018-patient given the history of cirrhosis of the liver. He admitted that he is to drink heavy . - Time Time Spent with patient: 25-34 minutes Smoking Cessation Education: over 10 minutes Medications reviewed and adjusted accordingly: Yes Anticipated discharge: SNF
[2018-10-28 10:49] LABS: CREATINE KINASE MB 1.78 ng/mL (<4.55)
[2018-10-28 10:52] LABS: TROPONIN I < 0.012 ng/mL
[2018-10-28 11:16] LABS: PATH REVIEW PATHOLOGIST REVIEWED
[2018-10-28] MEDS: LISINOPRIL 10 MG TABLET PO SCH (11:27)
[2018-10-28] MEDS: FAMOTIDINE 20 MG TABLET PO SCH ×2 (11:27→21:44)
[2018-10-28] MEDS: AMLODIPINE BESYLATE 10 MG TABLET PO SCH (11:28)
[2018-10-28] MEDS: METOPROLOL SUCCINATE 50 MG TAB.SR.24H PO SCH (11:29)
[2018-10-28] MEDS: CYANOCOBALAMIN (VITAMIN B-12) 1,000 MCG TABLET PO SCH (11:29)
[2018-10-28] MEDS: THIAMINE HCL 100 MG TABLET PO SCH (11:29)
[2018-10-28] MEDS: FOLIC ACID 1 MG TABLET PO SCH (11:30)
[2018-10-28] MEDS: ASPIRIN 81 MG TABLET, ENT COATED PO SCH (11:34)
[2018-10-28] MEDS: CLOPIDOGREL BISULFATE 75 MG TABLET PO SCH (11:35)
--- NOTE | 2018-10-28 13:44 | RADIOLOGY REPORT (SQ) ---
EXAM DESCRIPTION: CTA NECK COMPLETED DATE/TIME: 10/28/2018 1:05 pm REASON FOR STUDY: cva COMPARISON: None. 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 Multiplanar reconstruction. 3-D MIPS and Volume-rendered imag es acquired at the workstation and saved to PACS. Images are reviewed in soft tissue, bone, lung w indows. All CT scanners at this facility use dose modulation, iterative reconstruction, and/or weight based d osing when appropriate to reduce radiation dose to as low as reasonably achievable (ALARA). [facility]: Dose Right [facility]: CareDose [facility]: Dose Right [facility]: Teradose 4D [facility]: [facility] CONTRAST TYPE AND DOSE: 80 mL Omnipaque 350- low osmolar. RENAL FUNCTION: BUN 17 creatinine 1.11. LIMITATIONS: None. FINDINGS: AORTIC ARCH: Normal three-vessel origin. Bilateral subclavian arteries are patent. No d issection. RIGHT CAROTIDS: Scattered plaque in the common carotid artery with a few calcifications. Calcified p laque in the proximal internal carotid artery with estimated 70% stenosis. RIGHT VERTEBRAL: Dense calcifications throughout the vessel. Very little contrast visible in the lum en. LEFT CAROTIDS: Scattered plaque in the common carotid artery with a few calcifications. Calcified pl aque in the proximal internal carotid artery with estimated 80 to 90% stenosis. LEFT VERTEBRAL: Scattered calcified plaque throughout the vessel with probable high-grade stenosis in the mid vessel. OTHER: No other significant finding. OTHER: 3-D reconstructions confirm findings. IMPRESSION: 1. CALCIFIED PLAQUE IN THE PROXIMAL RIGHT AND LEFT INTERNAL CAROTID ARTERIES. ESTIMATED 70% STENOSIS OF THE RIGHT INTERNAL CAROTID ARTERY AND 80 TO 90% STENOSIS OF THE LEFT INTERNAL CAROTID ARTERY. 2. DENSE CALCIFICATIONS THROUGHOUT THE RIGHT VERTEBRAL ARTERY WITH VERY LITTLE CONTRAST VISIBLE IN TH E LUMEN. SUSPECT HIGH-GRADE STENOSIS AND CANNOT EXCLUDE SHORT SEGMENT OCCLUSION. 3. SCATTERED CALCIFIED PLAQUE IN THE LEFT VERTEBRAL ARTERY WITH PROBABLE HIGH-GRADE STENOSIS IN THE M ID VESSEL. COMMENT: Quality ID #[id number]: Measurements of distal internal carotid diameter were used as the denomina tor for stenosis measurement. TECHNICAL DOCUMENTATION: JOB ID: [id number] Quality ID # [id number]: Final reports with documentation of one or more dose reduction techniques (e.g., Au tomated exposure control, adjustment of the mA and/or kV according to patient size, use of iterative reconstruction technique) 2010 [employer]- All Rights Reserved Reading location - IP/workstation name: [email or web address]
--- NOTE | 2018-10-28 13:50 | RADIOLOGY REPORT (SQ) ---
EXAM DESCRIPTION: CTA HEAD COMPLETED DATE/TIME: 10/28/2018 1:05 pm REASON FOR STUDY: cva COMPARISON: None. TECHNIQUE: Post IV contrast scanning, thin section axial imaging through the brain to evaluate the a rterial structures. Source and MIP images are saved and reviewed on PACS. Advanced 3D imaging as volume-rendering, MIPs, SSD performed? yes All CT scanners at this facility use dose modulation, iterative reconstruction, and/or weight based d osing when appropriate to reduce radiation dose to as low as reasonably achievable (ALARA). [facility]: Dose Right [facility]: CareDose [facility]: Dose Right [facility]: Teradose 4D [facility]: [employer] CONTRAST TYPE AND DOSE: contrast/concentration: Isovue 350.00 mg/ml; Total Contrast Delivered: 80.0 ml; Total Saline Delivered: 75.0 ml RENAL FUNCTION: BUN 17 creatinine 1.11. LIMITATIONS: None. FINDINGS: [place] OF STONE: Heavily calcified plaque in the right and left intracranial internal car otid artery. Cannot exclude some degree of stenosis. The anterior, middle, posterior cerebral arter ies are all patent. No evidence of aneurysm or focal stenosis. POSTERIOR CIRCULATION: The distal vertebral arteries are patent as is the basilar artery. No aneurysm . BRAIN: No gross enhancing lesions as visualized. The superior cerebral hemispheres are not included in the field of view. BONES: Intact as visualized. SINUSES: No fluid or mucosal thickening. OTHER: No other significant finding. IMPRESSION: HEAVILY CALCIFIED PLAQUE IN THE RIGHT AND LEFT INTRACRANIAL INTERNAL CAROTID ARTERY. CA NNOT EXCLUDE SOME DEGREE OF STENOSIS. NO CTA EVIDENCE OF STENOSIS OR ANEURYSM OF THE [place] OF [place]. TECHNICAL DOCUMENTATION: JOB ID: [id number] Quality ID # [id number]: Final reports with documentation of one or more dose reduction techniques (e.g., Au tomated exposure control, adjustment of the mA and/or kV according to patient size, use of iterative reconstruction technique) 2010 [employer]- All Rights Reserved Reading location - IP/workstation name: [email or web address]
[2018-10-28] MEDS ORDERED: NORMAL SALINE 1000 ML 1,000 ML with POTASSIUM CHLORIDE 20 MEQ, MAGNESIUM SULFATE 8 MEQ,... IV SCH ×5 (18:00)
[2018-10-28] MEDS: ATORVASTATIN CALCIUM 40 MG TABLET PO SCH (21:45)
[2018-10-29] MEDS: LISINOPRIL 10 MG TABLET PO SCH (00:31)
[2018-10-29 04:51] LABS: ABSOLUTE LYMPHOCYTES (AUTO) 1.8 10^3/uL (0.5-4.7); ABSOLUTE MONOCYTES (AUTO) 0.4 10^3/uL (0.1-1.4); ABSOLUTE NEUT (AUTO) 2.6 10^3/uL (1.7-8.2); BASOPHILS % (AUTO) 0.3 % (0-2); EOSINOPHILS % (AUTO) 0.2 % (0-6); HEMATOCRIT 36.3 % (37.9-51.0); HEMOGLOBIN 12.6 g/dL (13.5-17.0); LYMPHOCYTES % (AUTO) 38.2 % (13-45); MEAN CORPUSCULAR HEMOGLOBIN 37.8 pg (27.0-33.4); MEAN CORPUSCULAR HGB CONC 34.6 g/dL (32.0-36.0); MEAN CORPUSCULAR VOLUME 109 fl (80-97); MONOCYTES % (AUTO) 7.7 % (3-13); RED BLOOD COUNT 3.32 10^6/uL (4.35-5.55); RED CELL DISTRIBUTION WIDTH 17.9 % (11.5-14.0); SEGMENTED NEUTROPHILS % (AUTO) 53.6 % (42-78); TOTAL CELLS COUNTED % (AUTO) 100 %; WHITE BLOOD COUNT 4.8 10^3/uL (4.0-10.5)
[2018-10-29 05:00] LABS: ALANINE AMINOTRANSFERASE 34 U/L (21-72); ALBUMIN 4.1 g/dL (3.5-5.0); ALKALINE PHOSPHATASE 68 U/L (38-126); ANION GAP 9 (5-19); ASPARTATE AMINO TRANSFERASE 36 U/L (17-59); BILIRUBIN,DIRECT 0.2 mg/dL (0.0-0.4); BILIRUBIN,TOTAL 1.2 mg/dL (0.2-1.3); BLOOD UREA NITROGEN 23 mg/dL (7-20); CALCIUM 9.3 mg/dL (8.4-10.2); CARBON DIOXIDE 25 mmol/L (22-30); CHLORIDE 104 mmol/L (98-107); GLUCOSE 114 mg/dL (75-110); POTASSIUM 3.9 mmol/L (3.6-5.0); SODIUM 138.3 mmol/L (137-145)
[2018-10-29 05:11] LABS: PLATELET COUNT 36 10^3/uL (150-450)
--- NOTE | 2018-10-29 09:28 | PDOC PROGRESS REPORT ---
Subjective Progress Note for:: 10/29/18 Subjective:: 58 year old [id number] male who presents the emergency room with a 1 day history of right-sided weakness. He admits that at about 3 PM yesterday afternoon he was at work and noticed that his right leg was weak and not supporting him correctly as he walked. He pushed on to finish the rest of the day at work noticing that he had also developed some lifting weakness in his right arm. The symptoms persisted after work and he went home and eventually went to bed waking this morning with worse weakness of the right upper and lower extremities then previous. He tried to get up out of bed and fell without injury. He admits to not taking his high blood pressure medication for the past few weeks. He denies prior similar symptoms of focal weakness and has not identified any aggravating or ameliorating factors for his weakness. In the emergency room he was found to have right-sided weakness with a negative CT scan of the head for acute bleed or obvious infarction. He was also noted to have uncontrolled hypertension and was placed on a nicardipine infusion to control his hypertension. He was subsequently admitted to the hospital for further eval uation and treatment. 10/29/[id number]-lroo-old male admitted with CVA involving the right side of the body as per the patient strength is improving. He has a stent placements in the lower extremities so be unable to do the MRI. We did a CTA of the neck CT of the head which shows bilateral carotid artery stenosis 70% one on one side 80% on the other side. Patient may need to go see a vascular surgeon as an outpatient in a tertiary facility for further management for the carotid artery stenosis. Alert and awake communicating well not in distress. No acute events. Reason For Visit: HYPERTENSIVE EMERGENCY, ACUTE LEFT MIDDLE CEREBRAL Physical Exam Vital Signs: Temp Pulse Resp BP Pulse Ox 98.2 F 64 16 158/76 H 97 10/29/18 07:36 10/29/18 08:44 10/29/18 08:44 10/29/18 07:36 10/29/18 07:36 Intake & Output 10/28/18 10/29/18 10/30/18 06:59 06:59 06:59 Intake Total 110 702 Output Total 890 Balance 110 -188 Weight 80 kg 81.5 kg General appearance: PRESENT: no acute distress, well-developed Head exam: PRESENT: atraumatic Eye exam: PRESENT: PERRLA Mouth exam: PRESENT: moist, tongue midline Teeth exam: PRESENT: poor dentation Neck exam: PRESENT: carotid bruit. ABSENT: JVD, lymphadenopathy, thyromegaly Respiratory exam: PRESENT: decreased breath sounds Cardiovascular exam: PRESENT: bradycardia GI/Abdominal exam: PRESENT: normal bowel sounds, soft. ABSENT: distended, guarding, mass, organolmegaly, rebound, tenderness Rectal exam: PRESENT: deferred Neurological exam: PRESENT: alert, altered, awake, oriented to person, oriented to place, oriented to time, other - Power in the right upper arm is 3 /5, right lower extremity is 3/5 today.. ABSENT: CN II-XII grossly intact Psychiatric exam: PRESENT: appropriate affect, normal mood. ABSENT: homicidal ideation, suicidal ideation Results Laboratory Results: 10/29/18 04:17 10/29/18 04:17 10/29/18 10/29/18 04:17 04:17 WBC 4.8 RBC 3.32 L Hgb 12.6 L Hct 36.3 L MCV 109 H MCH 37.8 H MCHC 34.6 RDW 17.9 H Plt Count 36 L Seg Neutrophils % 53.6 Lymphocytes % 38.2 Monocytes % 7.7 Eosinophils % 0.2 Basophils % 0.3 Absolute Neutrophils 2.6 Absolute Lymphocytes 1.8 Absolute Monocytes 0.4 Absolute Eosinophils 0.0 Absolute Basophils 0.0 Sodium 138.3 Potassium 3.9 Chloride 104 Carbon Dioxide 25 Anion Gap 9 BUN 23 H Creatinine 1.91 H Est GFR ( Amer) 44 L Est GFR (Non-Af Amer) 36 L Glucose 114 H Calcium 9.3 Magnesium 2.3 Total Bilirubin 1.2 AST 36 ALT 34 Alkaline Phosphatase 68 Total Protein 7.0 Albumin 4.1 10/27/18 10/27/18 10/27/18 13:45 22:40 22:40 Creatine Kinase 170 CK-MB (CK-2) 1.12 0.98 Troponin I < 0.012 10/28/18 10/28/18 10/28/18 04:40 04:40 10:10 Creatine Kinase 192 H 238 H CK-MB (CK-2) 1.42 Troponin I < 0.012 10/28/18 10:10 Creatine Kinase CK-MB (CK-2) 1.78 Troponin I < 0.012 Impressions: Hip/Pelvis X-Ray 10/27/18 00:00 IMPRESSION: 1. No acute findings. 2. Atherosclerosis Head CT 10/27/18 13:34 IMPRESSION: No acute findings. Significant small vessel disease with white matter, thalamic and basal ganglia infarcts EVIDENCE OF ACUTE STROKE: NO. Head CTA 10/28/18 00:00 IMPRESSION: HEAVILY CALCIFIED PLAQUE IN THE RIGHT AND LEFT INTRACRANIAL INTERNAL CAROTID ARTERY. CANNOT EXCLUDE SOME DEGREE OF STENOSIS. NO CTA EVIDENCE OF STENOSIS OR ANEURYSM OF THE [place] OF STONE. Neck CTA 10/28/18 00:00 IMPRESSION: 1. CALCIFIED PLAQUE IN THE PROXIMAL RIGHT AND LEFT INTERNAL CAROTID ARTERIES. ESTIMATED 70% STENOSIS OF THE RIGHT INTERNAL CAROTID ARTERY AND 80 TO 90% BRENDA NOSIS OF THE LEFT INTERNAL CAROTID ARTERY. 2. DENSE CALCIFICATIONS THROUGHOUT THE RIGHT VERTEBRAL ARTERY WITH VERY LITTLE CONTRAST VISIBLE IN THE LUMEN. SUSPECT HIGH-GRADE STENOSIS AND CANNOT EXCLUDE SHORT SEGMENT OCCLUSION. 3. SCATTERED CALCIFIED PLAQUE IN THE LEFT VERTEBRAL ARTERY WITH PROBABLE HIGH- GRADE STENOSIS IN THE MID VESSEL. Assessment and Plan - Diagnosis (1) CVA (cerebrovascular accident) Qualifiers: CVA mechanism: unspecified Qualified Code(s): I63.9 - Cerebral infarction, unspecified Is this a current diagnosis for this admission?: Yes Plan: Patient will be admitted to the [facility] and he will be placed on the stroke protocol for evaluation. He will have an MRI of the brain, a carotid Doppler evaluation and an echocardiogram performed. He will be evaluated and treated by the stroke team including PT, OT and speech therapy. 10/28/[id number]-bhqa-old male with multiple medical problems including hypertensi on, cirrhosis of the liver admitted with right-sided weakness CT head was negative for acute pathology he has multiple stents placement in the lower extremities and the above aortic waiting for the further information from [place] about the stents prior to doing the MRI. In the meantime we are going to do the CTA of the neck and head today. PT consult OT consult rehab consult was requested. Patient platelet count is 33,000 because of the risk of bleeding he is not getting heparin or Plavix. Presently receiving simvastatin. Lipid panel was done. Aspiration fall seizure precautions are requested. GI prophylaxis was initiated. X [id number] male admitted with new onset CVA unable to do the MRI until now. CT head was negative. CT of the neck shows bilateral carotid artery stenosis. Unable to give Lovenox because patient's platelet count is 36,000. He is receiving atorvastatin. (2) Hypertensive emergency Is this a current diagnosis for this admission?: Yes Plan: Patient will be admitted to the [facility] and hydralazine as well as metoprolol will be given every 4 hours intravenously as needed to establish adequate blood pressure control (160/100). Patient will be restarted on oral antihypertensives in the AM. Daily CBC, metabolic profile and magnesium levels will be obtained as part of his ongoing evaluation. His blood pressure will be monitored closely throughout the remainder of his hospital course. 10/28/2018-patient's blood pressures are still elevated this morning he is on IV hydralazine as needed and metoprolol IV as needed. Blood pressure this morning is 180/95 started on amlodipine 10 mg daily and lisinopril 10 mg daily. To continue to closely monitor his blood pressures. Also plan is to not to rapidly bring the blood pressure close to normal. 10/29/2018-patient came in with hypertensive urgency latest blood pressure is 146/62. Stable. On IV hydralazine 10 mg every 4 hours as needed for a systolic blood pressure more than 150 on amlodipine 10 mg daily, losartan was increased to 100 mg p.o. daily today. Plan is to continue to closely monitor his blood pressures. (3) Obesity (BMI 30-39.9) Is this a current diagnosis for this admission?: Yes (4) Tobacco use disorder, severe, dependence Is this a current diagnosis for this admission?: Yes (5) Acquired thrombocytopenia Is this a current diagnosis for this admission?: Yes Plan: 10/28/2018-patient's platelet count is 33,000 today most likely secondary to cirrhosis of the liver. 10/29/2018-patient's platelet count is 36,000 most likely secondary to cirrhosis of the liver. (6) Cirrhosis of liver Is this a current diagnosis for this admission?: No - Time Time Spent with patient: 25-34 minutes Medications reviewed and adjusted accordingly: Yes Anticipated discharge: SNF
[2018-10-29] MEDS ORDERED: (PENDING PHARMACY ID) (Irbesartan [Irbesartan] 150 MG) PO SCH (10:00)
[2018-10-29] MEDS ORDERED: LOSARTAN POTASSIUM 50 MG TABLET PO SCH ×2 (10:00)
[2018-10-29] MEDS: AMLODIPINE BESYLATE 10 MG TABLET PO SCH (10:40)
[2018-10-29] MEDS: ASPIRIN 81 MG TABLET, ENT COATED PO SCH (10:40)
[2018-10-29] MEDS: FAMOTIDINE 20 MG TABLET PO SCH ×2 (10:40→21:12)
[2018-10-29] MEDS: FOLIC ACID 1 MG TABLET PO SCH (10:40)
[2018-10-29] MEDS: CYANOCOBALAMIN (VITAMIN B-12) 1,000 MCG TABLET PO SCH (10:41)
[2018-10-29] MEDS: CLOPIDOGREL BISULFATE 75 MG TABLET PO SCH (10:41)
[2018-10-29] MEDS: THIAMINE HCL 100 MG TABLET PO SCH (10:41)
[2018-10-29] MEDS: METOPROLOL SUCCINATE 50 MG TAB.SR.24H PO SCH (10:41)
[2018-10-29] MEDS: HYDRALAZINE HCL INJ/PF 20 MG/1 ML SDV IV PRN (13:08)
[2018-10-29] MEDS: ATORVASTATIN CALCIUM 40 MG TABLET PO SCH (21:12)
--- NOTE | 2018-10-29 23:44 | EKG REPORT ---
SEVERITY:- BORDERLINE ECG - SINUS RHYTHM MINIMAL ST DEPRESSION, LATERAL LEADS BORDERLINE PROLONGED QT INTERVAL : Confirmed by: Zane Rogers 29-Oct-2018 23:43:36
[2018-10-30] MEDS: HYDRALAZINE HCL INJ/PF 20 MG/1 ML SDV IV PRN (07:49)
[2018-10-30 08:08] LABS: ALANINE AMINOTRANSFERASE 35 U/L (21-72); ALBUMIN 3.9 g/dL (3.5-5.0); ALKALINE PHOSPHATASE 72 U/L (38-126); ANION GAP 9 (5-19); ASPARTATE AMINO TRANSFERASE 34 U/L (17-59); BILIRUBIN,DIRECT 0.3 mg/dL (0.0-0.4); BILIRUBIN,TOTAL 0.8 mg/dL (0.2-1.3); BLOOD UREA NITROGEN 27 mg/dL (7-20); CALCIUM 9.2 mg/dL (8.4-10.2); CARBON DIOXIDE 22 mmol/L (22-30); CHLORIDE 107 mmol/L (98-107); GLUCOSE 103 mg/dL (75-110); POTASSIUM 3.8 mmol/L (3.6-5.0)
[2018-10-30 08:09] LABS: ABSOLUTE LYMPHOCYTES (AUTO) 2.4 10^3/uL (0.5-4.7); ABSOLUTE MONOCYTES (AUTO) 0.5 10^3/uL (0.1-1.4); ABSOLUTE NEUT (AUTO) 2.3 10^3/uL (1.7-8.2); BASOPHILS % (AUTO) 0.5 % (0-2); EOSINOPHILS % (AUTO) 0.5 % (0-6); HEMATOCRIT 35.6 % (37.9-51.0); HEMOGLOBIN 12.3 g/dL (13.5-17.0); LYMPHOCYTES % (AUTO) 46.6 % (13-45); MEAN CORPUSCULAR HEMOGLOBIN 38.5 pg (27.0-33.4); MEAN CORPUSCULAR HGB CONC 34.6 g/dL (32.0-36.0); MEAN CORPUSCULAR VOLUME 111 fl (80-97); MONOCYTES % (AUTO) 8.8 % (3-13); RED CELL DISTRIBUTION WIDTH 17.6 % (11.5-14.0); SEGMENTED NEUTROPHILS % (AUTO) 43.6 % (42-78); TOTAL CELLS COUNTED % (AUTO) 100 %; WHITE BLOOD COUNT 5.2 10^3/uL (4.0-10.5)
[2018-10-30 08:35] LABS: ANISOCYTOSIS 1+; OVALOCYTES SLIGHT; PLATELET COMMENT DECREASED; POIKILOCYTOSIS 1+; TEAR DROP CELLS SLIGHT
[2018-10-30 08:37] LABS: PLATELET COUNT 26 10^3/uL (150-450)
--- NOTE | 2018-10-30 09:46 | PDOC PROGRESS REPORT ---
Subjective Progress Note for:: 10/30/18 Subjective:: 58 year old [id number] male who presents the emergency room with a 1 day history of right-sided weakness. He admits that at about 3 PM yesterday afternoon he was at work and noticed that his right leg was weak and not supporting him correctly as he walked. He pushed on to finish the rest of the day at work noticing that he had also developed some lifting weakness in his right arm. The symptoms persisted after work and he went home and eventually went to bed waking this morning with worse weakness of the right upper and lower extremities then previous. He tried to get up out of bed and fell without injury. He admits to not taking his high blood pressure medication for the past few weeks. He denies prior similar symptoms of focal weakness and has not identified any aggravating or ameliorating factors for his weakness. In the emergency room he was found to have right-sided weakness with a negative CT scan of the head for acute bleed or obvious infarction. He was also noted to have uncontrolled hypertension and was placed on a nicardipine infusion to control his hypertension. He was subsequently admitted to the hospital for further eval uation and treatment. 10/29/[id number]-vlvn-old male admitted with CVA involving the right side of the body as per the patient strength is improving. He has a stent placements in the lower extremities so be unable to do the MRI. We did a CTA of the neck CT of the head which shows bilateral carotid artery stenosis 70% one on one side 80% on the other side. Patient may need to go see a vascular surgeon as an outpatient in a tertiary facility for further management for the carotid artery stenosis. Alert and awake communicating well not in distress. No acute events. 10/30/[id number]-lljr-old male admitted with CVA involving the right side of the body physical therapy working with the patient. No problem with swallowing no problem with memory. Stroke protocol was implemented. No acute events in the last 24 hours. Afebrile. Reason For Visit: HYPERTENSIVE EMERGENCY, ACUTE LEFT MIDDLE CEREBRAL Physical Exam Vital Signs: Temp Pulse Resp BP Pulse Ox 98.2 F 54 L 16 140/57 H 96 10/30/18 07:22 10/30/18 07:22 10/30/18 07:22 10/30/18 09:17 10/30/18 07:22 Intake & Output 10/29/18 10/30/18 10/31/18 06:59 06:59 06:59 Intake Total 702 677 Output Total 890 2885 Balance -188 -518 Weight 81.5 kg 81.2 kg General appearance: PRESENT: no acute distress Head exam: PRESENT: atraumatic Eye exam: PRESENT: PERRLA Mouth exam: PRESENT: moist, tongue midline Teeth exam: PRESENT: poor dentation Neck exam: ABSENT: carotid bruit, JVD, lymphadenopathy, thyromegaly Respiratory exam: PRESENT: clear to auscultation bruno. ABSENT: rales, rhonchi, wheezes Cardiovascular exam: PRESENT: RRR. ABSENT: diastolic murmur, rubs, systolic murmur GI/Abdominal exam: PRESENT: normal bowel sounds, soft. ABSENT: distended, guarding, mass, organolmegaly, rebound, tenderness Rectal exam: PRESENT: deferred Extremities exam: PRESENT: full ROM. ABSENT: calf tenderness, clubbing, pedal edema Neurological exam: PRESENT: alert, awake, oriented to person, oriented to place, oriented to time, oriented to situation, CN II-XII grossly intact. ABSENT: motor sensory deficit Results Laboratory Results: 10/30/18 04:22 10/30/18 04:22 10/30/18 10/30/18 10/30/18 04:22 04:22 04:22 WBC 5.2 RBC 3.20 L Hgb 12.3 L Hct 35.6 L MCV 111 H MCH 38.5 H MCHC 34.6 RDW 17.6 H Plt Count 26 L* Seg Neutrophils % 43.6 Lymphocytes % 46.6 H Monocytes % 8.8 Eosinophils % 0.5 Basophils % 0.5 Absolute Neutrophils 2.3 Absolute Lymphocytes 2.4 Absolute Monocytes 0.5 Absolute Eosinophils 0.0 Absolute Basophils 0.0 Sodium 138.0 Potassium 3.8 Chloride 107 Carbon Dioxide 22 Anion Gap 9 BUN 27 H Creatinine 1.82 H Est GFR ( Amer) 46 L Est GFR (Non-Af Amer) 38 L Glucose 103 Calcium 9.2 Magnesium 2.1 Cancelled Total Bilirubin 0.8 AST 34 ALT 35 Alkaline Phosphatase 72 Total Protein 7.0 Albumin 3.9 10/27/18 10/27/18 10/27/18 13:45 22:40 22:40 Creatine Kinase 170 CK-MB (CK-2) 1.12 0.98 Troponin I < 0.012 10/28/18 10/28/18 10/28/18 04:40 04:40 10:10 Creatine Kinase 192 H 238 H CK-MB (CK-2) 1.42 Troponin I < 0.012 10/28/18 10:10 Creatine Kinase CK-MB (CK-2) 1.78 Troponin I < 0.012 Impressions: Hip/Pelvis X-Ray 10/27/18 00:00 IMPRESSION: 1. No acute findings. 2. Atherosclerosis Head CT 10/27/18 13:34 IMPRESSION: No acute findings. Significant small vessel disease with white matter, thalamic and basal ganglia infarcts EVIDENCE OF ACUTE STROKE: NO. Head CTA 10/28/18 00:00 IMPRESSION: HEAVILY CALCIFIED PLAQUE IN THE RIGHT AND LEFT INTRACRANIAL INTERNAL CAROTID ARTERY. CANNOT EXCLUDE SOME DEGREE OF STENOSIS. NO CTA EVIDENCE OF STENOSIS OR ANEURYSM OF THE [place] OF STONE. Neck CTA 10/28/18 00:00 IMPRESSION: 1. CALCIFIED PLAQUE IN THE PROXIMAL RIGHT AND LEFT INTERNAL CAROTID ARTERIES. ESTIMATED 70% STENOSIS OF THE RIGHT INTERNAL CAROTID ARTERY AND 80 TO 90% STENOSIS OF THE LEFT INTERNAL CAROTID ARTERY. 2. DENSE CALCIFICATIONS THROUGHOUT THE RIGHT VERTEBRAL ARTERY WITH VERY LITTLE CONTRAST VISIBLE IN THE LUMEN. SUSPECT HIGH-GRADE STENOSIS AND CANNOT EXCLUDE SHORT SEGMENT OCCLUSION. 3. SCATTERED CALCIFIED PLAQUE IN THE LEFT VERTEBRAL ARTERY WITH PROBABLE HIGH- GRADE STENOSIS IN THE MID VESSEL. Assessment and Plan - Diagnosis (1) CVA (cerebrovascular accident) Qualifiers: CVA mechanism: unspecified Qualified Code(s): I63.9 - Cerebral infarction, unspecified Is this a current diagnosis for this admission?: Yes Plan: Patient will be admitted to the [facility] and he will be placed on the stroke protocol for evaluation. He will have an MRI of the brain, a carotid Doppler evaluation and an echocardiogram performed. He will be evaluated and treated by the stroke team including PT, OT and speech therapy. 10/28/[id number]-xmsz-old male with multiple medical problems including hypertension, cirrhosis of the liver admitted with right-sided weakness CT head was negative for acute pathology he has multiple stents placement in the lower extremities and the above aortic waiting for the further information from [place] about the stents prior to doing the MRI. In the meantime we are going to do the CTA of the neck and head today. PT consult OT consult rehab consult was requested. Patient platelet count is 33,000 because of the risk of bleeding he is not getting heparin or Plavix. Presently receiving simvastatin. Lipid panel was done. Aspiration fall seizure precautions are requested. GI prophylaxis was initiated. [id number] male admitted with new onset CVA unable to do the MRI until now. CT head was negative. CT of the neck shows bilateral carotid artery stenosis. Unable to give Lovenox because patient's platelet count is 36,000. He is receiving atorvastatin. 10/30/[id number]-ndog-old male admitted for CVA. And CT of the neck shows bilateral carotid artery stenosis. No acute events during the hospital stay. Physical therapy following the patient. Stroke protocol was implemented. Unable to give Lovenox because platelet count is 26,000 but he is receiving Plavix and aspirin. He is also on cholesterol medications. (2) Hypertensive emergency Is this a current diagnosis for this admission?: Yes Plan: Patient will be admitted to the [facility] and hydralazine as well as metoprolol will be given every 4 hours intravenously as needed to establish adequate blood press ure control (160/100). Patient will be restarted on oral antihypertensives in the AM. Daily CBC, metabolic profile and magnesium levels will be obtained as part of his ongoing evaluation. His blood pressure will be monitored closely throughout the remainder of his hospital course. 10/28/2018-patient's blood pressures are still elevated this morning he is on IV hydralazine as needed and metoprolol IV as needed. Blood pressure this morning is 180/95 started on amlodipine 10 mg daily and lisinopril 10 mg daily. To continue to closely monitor his blood pressures. Also plan is to not to rapidly bring the blood pressure close to normal. 10/29/2018-patient came in with hypertensive urgency latest blood pressure is 146/62. Stable. On IV hydralazine 10 mg every 4 hours as needed for a systolic blood pressure more than 150 on amlodipine 10 mg daily, losartan was increased to 100 mg p.o. daily today. Plan is to continue to closely monitor his blood pressures. 10/30/2018-patient's blood pressure today is 156/72 add losartan to the present medication. Is on also on amlodipine 10 mg p.o. daily. (3) Obesity (BMI 30-39.9) Is this a current diagnosis for this admission?: Yes (4) Tobacco use disorder, severe, dependence Is this a current diagnosis for this admission?: Yes (5) Acquired thrombocytopenia Is this a current diagnosis for this admission?: Yes (6) Cirrhosis of liver Is this a current diagnosis for this admission?: No - Time Time Spent with patient: 25-34 minutes Anticipated discharge: Home, SNF
[2018-10-30] MEDS: AMLODIPINE BESYLATE 10 MG TABLET PO SCH (10:49)
[2018-10-30] MEDS: CLOPIDOGREL BISULFATE 75 MG TABLET PO SCH (10:50)
[2018-10-30] MEDS: CYANOCOBALAMIN (VITAMIN B-12) 1,000 MCG TABLET PO SCH (10:50)
[2018-10-30] MEDS: FOLIC ACID 1 MG TABLET PO SCH (10:50)
[2018-10-30] MEDS: METOPROLOL SUCCINATE 50 MG TAB.SR.24H PO SCH (10:50)
[2018-10-30] MEDS: THIAMINE HCL 100 MG TABLET PO SCH (10:50)
[2018-10-30] MEDS: FAMOTIDINE 20 MG TABLET PO SCH ×2 (10:50→21:16)
[2018-10-30] MEDS: LOSARTAN POTASSIUM 50 MG TABLET PO SCH (10:50)
[2018-10-30] MEDS: ASPIRIN 81 MG TABLET, ENT COATED PO SCH (10:50)
[2018-10-30] MEDS: ATORVASTATIN CALCIUM 40 MG TABLET PO SCH (21:15)
[2018-10-30] MEDS: TEMAZEPAM 15 MG CAPSULE PO PRN (21:17)
--- NOTE | 2018-10-31 09:00 | PDOC PROGRESS REPORT ---
Subjective Progress Note for:: 10/31/18 Subjective:: 58 year old [id number] male who presents the emergency room with a 1 day history of right-sided weakness. He admits that at about 3 PM yesterday afternoon he was at work and noticed that his right leg was weak and not supporting him correctly as he walked. He pushed on to finish the rest of the day at work noticing that he had also developed some lifting weakness in his right arm. The symptoms persisted after work and he went home and eventually went to bed waking this morning with worse weakness of the right upper and lower extremities then previous. He tried to get up out of bed and fell without injury. He admits to not taking his high blood pressure medication for the past few weeks. He denies prior similar symptoms of focal weakness and has not identified any aggravating or ameliorating factors for his weakness. In the emergency room he was found to have right-sided weakness with a negative CT scan of the head for acute bleed or obvious infarction. He was also noted to have uncontrolled hypertension and was placed on a nicardipine infusion to control his hypertension. He was subsequently admitted to the hospital for further eval uation and treatment. 10/29/[id number]-uvqv-old male admitted with CVA involving the right side of the body as per the patient strength is improving. He has a stent placements in the lower extremities so be unable to do the MRI. We did a CTA of the neck CT of the head which shows bilateral carotid artery stenosis 70% one on one side 80% on the other side. Patient may need to go see a vascular surgeon as an outpatient in a tertiary facility for further management for the carotid artery stenosis. Alert and awake communicating well not in distress. No acute events. 10/30/[id number]-ripm-old male admitted with CVA involving the right side of the body physical therapy working with the patient. No problem with swallowing no problem with memory. Stroke protocol was implemented. No acute events in the last 24 hours. Afebrile. 10/31/2018-58 year-old male admitted with CVA unable to do MRI because of the stents in the lower extremities and CT of the neck shows bilateral carotid artery stenosis. He still have weakness involving the right upper arm right lower extremity. Barely able relief of the right arm and barely able to lift up the left leg. He needs to go to a inpatient rehab facility or penitentiary home for further improvement. Reason For Visit: HYPERTENSIVE EMERGENCY, ACUTE LEFT MIDDLE CEREBRAL Physical Exam Vital Signs: Temp Pulse Resp BP Pulse Ox 98.1 F 60 20 144/66 H 91 L 10/31/18 03:46 10/31/18 07:00 10/31/18 03:46 10/31/18 03:46 10/31/18 03:46 Intake & Output 10/30/18 10/31/18 11/01/18 06:59 06:59 06:59 Intake Total 677 1641 Output Total 1195 550 Balance -518 1091 Weight 81.2 kg 81.7 kg General appearance: PRESENT: no acute distress Head exam: PRESENT: atraumatic Eye exam: PRESENT: PERRLA Ear exam: PRESENT: normal external ear exam Mouth exam: PRESENT: neck supple Teeth exam: PRESENT: poor dentation Neck exam: ABSENT: carotid bruit, JVD, lymphadenopathy, thyromegaly Respiratory exam: PRESENT: decreased breath sounds Cardiovascular exam: PRESENT: RRR. ABSENT: diastolic murmur, rubs, systolic murmur GI/Abdominal exam: PRESENT: normal bowel sounds, soft. ABSENT: distended, guarding, mass, organolmegaly, rebound, tenderness Extremities exam: PRESENT: full ROM. ABSENT: calf tenderness, clubbing, pedal edema Neurological exam: PRESENT: alert, awake, oriented to person, oriented to place, oriented to time, oriented to situation, other Results Laboratory Results: 10/30/18 04:22 10/30/18 04:22 10/27/18 10/27/18 10/27/18 13:45 22:40 22:40 Creatine Kinase 170 CK-MB (CK-2) 1.12 0.98 Troponin I < 0.012 10/28/18 10/28/18 10/28/18 04:40 04:40 10:10 Creatine Kinase 192 H 238 H CK-MB (CK-2) 1.42 Troponin I < 0.012 10/28/18 10:10 Creatine Kinase CK-MB (CK-2) 1.78 Troponin I < 0.012 Impressions: Hip/Pelvis X-Ray 10/27/18 00:00 IMPRESSION: 1. No acute findings. 2. Atherosclerosis Head CT 10/27/18 13:34 IMPRESSION: No acute findings. Significant small vessel disease with white matter, thalamic and basal ganglia infarcts EVIDENCE OF ACUTE STROKE: NO. Head CTA 10/28/18 00:00 IMPRESSION: HEAVILY CALCIFIED PLAQUE IN THE RIGHT AND LEFT INTRACRANIAL INTERNAL CAROTID ARTERY. CANNOT EXCLUDE SOME DEGREE OF STENOSIS. NO CTA EVIDENCE OF STENOSIS OR ANEURYSM OF THE [place]. Neck CTA 10/28/18 00:00 IMPRESSION: 1. CALCIFIED PLAQUE IN THE PROXIMAL RIGHT AND LEFT INTERNAL CAROTID ARTERIES. ESTIMATED 70% STENOSIS OF THE RIGHT INTERNAL CAROTID ARTERY AND 80 TO 90% STENOSIS OF THE LEFT INTERNAL CAROTID ARTERY. 2. DENSE CALCIFICATIONS THROUGHOUT THE RIGHT VERTEBRAL ARTERY WITH VERY LITTLE CONTRAST VISIBLE IN THE LUMEN. SUSPECT HIGH-GRADE STENOSIS AND CANNOT EXCLUDE SHORT SEGMENT OCCLUSION. 3. SCATTERED CALCIFIED PLAQUE IN THE LEFT VERTEBRAL ARTERY WITH PROBABLE HIGH- GRADE STENOSIS IN THE MID VESSEL. Assessment and Plan - Diagnosis (1) CVA (cerebrovascular accident) Qualifiers: CVA mechanism: unspecified Qualified Code(s): I63.9 - Cerebral infarction, unspecified Is this a current diagnosis for this admission?: Yes Plan: Patient will be admitted to the [facility] and he will be placed on the stroke protocol for evaluation. He will have an MRI of the brain, a carotid Doppler evaluation and an echocardiogram performed. He will be evaluated and treated by the stroke team including PT, OT and speech therapy. 10/28/[id number]-ixdx-old male with multiple medical problems including hypertension, cirrhosis of the liver admitted with right-sided weakness CT head was negative for acute pathology he has multiple stents placement in the lower extremities and the above aortic waiting for the further information from [facility] about the stents prior to doing the MRI. In the meantime we are going to do the CTA of the neck and head today. PT consult OT consult rehab consult was requested. Patient platelet count is 33,000 because of the risk of bleeding he is not getting heparin or Plavix. Presently receiving simvastatin. Lipid panel was done. Aspiration fall seizure precautions are requested. GI proph ylaxis was initiated. [id number]-old male admitted with new onset CVA unable to do the MRI until now. CT head was negative. CT of the neck shows bilateral carotid artery stenosis. Unable to give Lovenox because patient's platelet count is 36,000. He is receiving atorvastatin. 10/30/[id number]-scna-old male admitted for CVA. And CT of the neck shows bilateral carotid artery stenosis. No acute events during the hospital stay. Physical therapy following the patient. Stroke protocol was implemented. Unable to give Lovenox because platelet count is 26,000 but he is receiving Plavix and aspirin. He is also on cholesterol medications. 10/31/[id number]-kkon-old male admitted with CVA CT head was negative CT of the neck shows bilateral carotid artery stenosis and unable to do the MRI of the head definitely on physical examination he had a ischemic stroke. Stroke core measures are implemented physical therapy is working with the patient I spoke to patient's this morning she prefer him to go to inpatient rehab facility or penitentiary home facility for further improvement. (2) Hypertensive emergency Is this a current diagnosis for this admission?: Yes Plan: Patient will be admitted to the [facility] and hydralazine as well as metoprolol will be given every 4 hours intravenously as needed to establish adequate blood pressure control (160/100). Patient will be restarted on oral antihypertensives in the AM. Daily CBC, metabolic profile and magnesium levels will be obtained as part of his ongoing evaluation. His blood pressure will be monitored closely throughout the remainder of his hospital course. 10/28/2018-patient's blood pressures are still elevated this morning he is on IV hydralazine as needed and metoprolol IV as needed. Blood pressure this morning is 180/95 started on amlodipine 10 mg daily and lisinopril 10 mg daily. To continue to closely monitor his blood pressures. Also plan is to not to rapidly bring the blood pressure close to normal. 10/29/2018-patient came in with hypertensive urgency latest blood pressure is 146/62. Stable. On IV hydralazine 10 mg every 4 hours as needed for a systolic blood pressure more than 150 on amlodipine 10 mg daily, losartan was increased to 100 mg p.o. daily today. Plan is to continue to closely monitor his blood pressures. 10/30/2018-patient's blood pressure today is 156/72 add losartan to the present medication. Is on also on amlodipine 10 mg p.o. daily. 10/31/2018-patient blood pressure today is 144/66. With a pulse rate of 57 stable plan is to continue IV hydralazine 10 mg every 4 PRN, amlodipine 10 mg p.o. daily, losartan. (3) Obesity (BMI 30-39.9) Is this a current diagnosis for this admission?: Yes (4) Tobacco use disorder, severe, dependence Is this a current diagnosis for this admission?: Yes (5) Acquired thrombocytopenia Is this a current diagnosis for this admission?: Yes (6) Cirrhosis of liver Is this a current diagnosis for this admission?: No - Time Time Spent with patient: 25-34 minutes Medications reviewed and adjusted accordingly: Yes Anticipated discharge: SNF
[2018-10-31] MEDS: LOSARTAN POTASSIUM 50 MG TABLET PO SCH (09:28)
[2018-10-31] MEDS: ASPIRIN 81 MG TABLET, ENT COATED PO SCH (09:29)
[2018-10-31] MEDS: METOPROLOL SUCCINATE 50 MG TAB.SR.24H PO SCH (09:29)
[2018-10-31] MEDS: FAMOTIDINE 20 MG TABLET PO SCH ×2 (09:29→21:15)
[2018-10-31] MEDS: THIAMINE HCL 100 MG TABLET PO SCH (09:29)
[2018-10-31] MEDS: CYANOCOBALAMIN (VITAMIN B-12) 1,000 MCG TABLET PO SCH (09:29)
[2018-10-31] MEDS: FOLIC ACID 1 MG TABLET PO SCH (09:29)
[2018-10-31] MEDS: CLOPIDOGREL BISULFATE 75 MG TABLET PO SCH (09:29)
[2018-10-31] MEDS: AMLODIPINE BESYLATE 10 MG TABLET PO SCH (09:29)
[2018-10-31 15:28] LABS: PATH REVIEW PATHOLOGIST REVIEWED
[2018-10-31] MEDS: ATORVASTATIN CALCIUM 40 MG TABLET PO SCH (21:15)
[2018-10-31] MEDS: TEMAZEPAM 15 MG CAPSULE PO PRN (21:16)
[2018-11-01 09:27] LABS: ABSOLUTE MONOCYTES (AUTO) 0.2 10^3/uL (0.1-1.4); ABSOLUTE NEUT (AUTO) 2.1 10^3/uL (1.7-8.2); BASOPHILS % (AUTO) 0.1 % (0-2); EOSINOPHILS % (AUTO) 0.4 % (0-6); HEMATOCRIT 36.7 % (37.9-51.0); HEMOGLOBIN 12.5 g/dL (13.5-17.0); LYMPHOCYTES % (AUTO) 46.6 % (13-45); MEAN CORPUSCULAR HEMOGLOBIN 37.5 pg (27.0-33.4); MEAN CORPUSCULAR VOLUME 110 fl (80-97); MONOCYTES % (AUTO) 5.1 % (3-13); RED BLOOD COUNT 3.33 10^6/uL (4.35-5.55); RED CELL DISTRIBUTION WIDTH 17.3 % (11.5-14.0); SEGMENTED NEUTROPHILS % (AUTO) 47.8 % (42-78); TOTAL CELLS COUNTED % (AUTO) 100 %; WHITE BLOOD COUNT 4.3 10^3/uL (4.0-10.5)
[2018-11-01 09:39] LABS: ANION GAP 11 (5-19); BLOOD UREA NITROGEN 25 mg/dL (7-20); CALCIUM 9.1 mg/dL (8.4-10.2); CARBON DIOXIDE 22 mmol/L (22-30); CHLORIDE 104 mmol/L (98-107); GLUCOSE 175 mg/dL (75-110); POTASSIUM 4.4 mmol/L (3.6-5.0); SODIUM 137.3 mmol/L (137-145)
[2018-11-01] MEDS: LOSARTAN POTASSIUM 50 MG TABLET PO SCH (09:50)
[2018-11-01] MEDS: ASPIRIN 81 MG TABLET, ENT COATED PO SCH (09:51)
[2018-11-01] MEDS: THIAMINE HCL 100 MG TABLET PO SCH (09:51)
[2018-11-01] MEDS: FOLIC ACID 1 MG TABLET PO SCH (09:51)
[2018-11-01] MEDS: FAMOTIDINE 20 MG TABLET PO SCH ×2 (09:51→21:36)
[2018-11-01] MEDS: CLOPIDOGREL BISULFATE 75 MG TABLET PO SCH (09:51)
[2018-11-01] MEDS: METOPROLOL SUCCINATE 50 MG TAB.SR.24H PO SCH (09:51)
[2018-11-01] MEDS: AMLODIPINE BESYLATE 10 MG TABLET PO SCH (09:51)
[2018-11-01] MEDS: CYANOCOBALAMIN (VITAMIN B-12) 1,000 MCG TABLET PO SCH (09:51)
[2018-11-01 10:07] LABS: PLATELET COUNT 34 10^3/uL (150-450)
[2018-11-01 10:09] LABS: ANISOCYTOSIS 1+; OVALOCYTES SLIGHT; PLATELET LARGE PRESENT; POIKILOCYTOSIS SLIGHT; TEAR DROP CELLS SLIGHT
[2018-11-01 10:10] LABS: PLATELET COMMENT DECREASED
--- NOTE | 2018-11-01 12:34 | Physical Med & Rehab Consult ---
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 CT head demonstrated no acute findings, but significant small vessel disease with white matter, thalamic, and basal ganglia infarcts was noted. CT angiogram of the head and neck demonstrated heavily calcified plaque in the right and left (estimated 70% stenosis of the right ICA and 80 to 90% stenosis of the left ICA) as well as suspected high-grade stenosis of the right vertebral artery and scattered plaque in the left vertebral artery with probable high-grade stenosis in the mid vessel. No CTA evidence of stenosis or aneurysm of the [place]. Patient is unable to have an MRI due to bilateral lower extremity stents in place. Echocardiogram has been performed but not yet read. Laboratory studies done straight hemoglobin A1c of 5.2%, thrombocytopenia, total cholesterol of 203, and LDL of 49 as well as evidence of acute kidney injury, which is improving. Patient is recommended outpatient follow-up with vascular surgery regarding the carotid and vertebral artery stenosis, the patient has been sta rted on aspirin 81 mg daily, Plavix 75 mg daily, and Lipitor 40 mg nightly for secondary stroke prophylaxis. His blood pressure initially required nifedipine drip, but it appears to be fairly well controlled now with oral agents. Hematology consult is pending for evaluation of the patient's thrombocytopenia. Physical medicine and rehabilitation consultation was requested to evaluate the patient for admission to acute inpatient rehabilitation. Today, the patient was seen and examined in his room. He complains of right- sided weakness and coordination deficits. He also admits to sensory deficits on the right. He denies bowel or bladder symptoms. Past Medical History Cardiac Medical History: Reports: Hypertension, Peripheral Vascular Disease Denies: Atrial Fibrillation, Congestive Heart Failure, Coronary Artery Disease, DVT, Myocardial Infarction, Hyperlipidema, Pulmonary Embolism Pulmonary Medical History: Denies: Asthma, Chronic Obstructive Pulmonary Disease (COPD), Respiratory Failure EENT Medical History: Denies: Cataracts, Ears - Hearing aids Neurological Medical History: Denies: Hemorrhagic CVA, Ischemic CVA, Multiple Sclerosis, Seizures Endocrine Medical History: Reports: Obesity Denies: Diabetes Mellitus Type 1, Diabetes Mellitus Type 2, Hyperthyroidism, Hypothyroidism Renal/ Medical History: Denies: Chronic Kidney Disease, Nephrolithiasis Malignancy Medical History: Reports: None GI Medical History: Denies: Cirrhosis, Crohn's Disease, Hepatitis, Ulcerative Colitis Musculoskeltal Medical History: Denies: Arthritis, Gout Skin Medical History: Denies: Eczema, Psoriasis Psychiatric Medical History: Reports: Tobacco Dependency Denies: Alcohol Dependency, Depression, Substance Abuse Traumatic Medical History: Reports: None Hematology: Denies: Anemia, Bleeding Tendencies Infectious Medical History: Reports: None Past Surgical History Past Surgical History: Reports: Vascular Surgery - bilateral lower extremities Social History Lives with: Spouse/Significant other Smoking Status: Current Every Day Smoker Cigarettes Packs Per Day: 0.5 Number of Years Smokin Last Time Smoked: 10/27/18 Frequency of Alcohol Use: Social Hx Recreational Drug Use: No Drugs: None Hx Prescription Drug Abuse: No Past Social History Note: Rajinder Patel lives with his in a 1 level home with 5 steps to enter and 0 steps to the bedroom and bathroom. His 's daughter also lives with them and is available to provide assistance as necessary upon hospital discharge. 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 Prior Functional Status: Active and independent with mobility and all ADLs. Ambulates without an assist device. Current Functional Status: Per therapy notes, the patient currently requires minimum assistance for bed mobility, minimum assistance for transfers, minimum assistance for ambulation of 30 feet with a rolling walker, minimum assistance for upper body dressing, and moderate assistance for lower body dressing. The patient is currently on a regular solids with thin liquids diet. - Advance Directive Resuscitation Status: Full Code Family History Family History: DM, Hypertension Parental Family History Reviewed: Yes Children Family History Reviewed: NA Sibling(s) Family History Reviewed.: NA Medication/Allergy Home Medications: Irbesartan 150 mg PO DAILY 10/28/18 Allergies/Adverse Reactions: No Known Allergies Allergy (Unverified 10/27/18 13:03) Review of Systems Review of Systems: Constitutional: No fevers, chills, sweats, weight loss Eye: No recent visual problems, no blurry vision, no double vision ENMT: No ear pain, nasal congestion, sore throat Respiratory: No shortness of breath, cough, sputum production Cardiovascular: No chest pain, palpitations, syncope Gastrointestinal: No nausea, vomiting, diarrhea, abdominal pain Genitourinary: No hematuria, dysuria, flank or suprapubic pain Yvon/Lymph: Negative for bruising tendency, swollen lymph glands Endocrine: Negative for excessive thirst, excessive hunger, extreme fatigue Musculoskeletal: No back pain, neck pain, joint pain, muscle pain, decreased range of motion Integumentary: No rash, pruritus, abrasions Neurologic: No headaches or speech problems. Positive for focal weakness on the right and sensory deficits on the right. Psychiatric: No anxiety, depression Physical Exam Vital Signs: Temp Pulse Resp BP Pulse Ox 98.2 F 56 L 14 147/67 H 100 11/01/18 07:56 11/01/18 07:56 11/01/18 07:56 11/01/18 07:56 11/01/18 07:56 Intake & Output 10/31/18 11/01/18 11/02/18 06:59 06:59 06:59 Intake Total 1641 1080 Output Total 550 980 Balance 1091 100 Weight 81.7 kg 81.6 kg Exam: General: Awake and Alert. No acute distress. Resting comfortably in bed. Head: Normocephalic. Atraumatic. Eyes: Pupils equal, round, and reactive to light. EOMI. Sclera white. Ears: No drainage noted. Nose: Nares normal & without exudate. Oropharynx: Moist mucous membranes. Neck: Supple movements. Cardiovascular: Regular rate & rhythm. No murmurs, rubs, or gallops appreciated. Pulmonary: Coarse expiratory breath sounds, but no increased work of breathing. Gastrointestinal: Abdomen soft, non-tender, non-distended. Normoactive bowel so unds. Skin: Texture and turgor normal. Warm and dry. Psychiatric: Judgement and insight appear to be good. Patient is oriented to date, location, and situation. Affect appropriate. Extremities: Evidence of previous right foot fourth and fifth digit amputation as well as left thigh vascular surgery. Neurological: CN III-XII grossly intact. Sensation to light touch is grossly intact. Tone is normal. No Trimble's. No Babinski. Speech is fluent with good content and without dysarthria. Muscle Strength: Full 5/5 strength in all major muscle groups of the 4 extremities, except 4/5 strength of right hip flexors and 1/5 strength of right dorsiflexors and plantar flexors. Although the patient has full or near full strength of the major muscle groups of the right upper extremity, he does have coordination deficits. Results Laboratory Results: 11/01/18 09:15 11/01/18 09:15 11/01/18 11/01/18 09:15 09:15 WBC 4.3 RBC 3.33 L Hgb 12.5 L Hct 36.7 L MCV 110 H MCH 37.5 H MCHC 34.0 RDW 17.3 H Plt Count 34 L Seg Neutrophils % 47.8 Lymphocytes % 46.6 H Monocytes % 5.1 Eosinophils % 0.4 Basophils % 0.1 Absolute Neutrophils 2.1 Absolute Lymphocytes 2.0 Absolute Monocytes 0.2 Absolute Eosinophils 0.0 Absolute Basophils 0.0 Sodium 137.3 Potassium 4.4 Chloride 104 Carbon Dioxide 22 Anion Gap 11 BUN 25 H Creatinine 1.36 H Est GFR ( Amer) > 60 Est GFR (Non-Af Amer) 53 L Glucose 175 H Calcium 9.1 10/27/18 10/27/18 10/27/18 13:45 22:40 22:40 Creatine Kinase 170 CK-MB (CK-2) 1.12 0.98 Troponin I < 0.012 10/28/18 10/28/18 10/28/18 04:40 04:40 10:10 Creatine Kinase 192 H 238 H CK-MB (CK-2) 1.42 Troponin I < 0.012 10/28/18 10:10 Creatine Kinase CK-MB (CK-2) 1.78 Troponin I < 0.012 Impressions: Hip/Pelvis X-Ray 10/27/18 00:00 IMPRESSION: 1. No acute findings. 2. Atherosclerosis Head CT 10/27/18 13:34 IMPRESSION: No acute findings. Significant small vessel disease with white matter, thalamic and basal ganglia infarcts EVIDENCE OF ACUTE STROKE: NO. Head CTA 10/28/18 00:00 IMPRESSION: HEAVILY CALCIFIED PLAQUE IN THE RIGHT AND LEFT INTRACRANIAL INTERNAL CAROTID ARTERY. CANNOT EXCLUDE SOME DEGREE OF STENOSIS. NO CTA EVIDENCE OF STENOSIS OR ANEURYSM OF THE [place] OF [place]. Neck CTA 10/28/18 00:00 IMPRESSION: 1. CALCIFIED PLAQUE IN THE PROXIMAL RIGHT AND LEFT INTERNAL CAROTID ARTERIES. ESTIMATED 70% STENOSIS OF THE RIGHT INTERNAL CAROTID ARTERY AND 80 TO 90% STENOSIS OF THE LEFT INTERNAL CAROTID ARTERY. 2. DENSE CALCIFICATIONS THROUGHOUT THE RIGHT VERTEBRAL ARTERY WITH VERY LITTLE CONTRAST VISIBLE IN THE LUMEN. SUSPECT HIGH-GRADE STENOSIS AND CANNOT EXCLUDE SHORT SEGMENT OCCLUSION. 3. SCATTERED CALCIFIED PLAQUE IN THE LEFT VERTEBRAL ARTERY WITH PROBABLE HIGH- GRADE STENOSIS IN THE MID VESSEL. Assessment and Plan - Plan Summary Plan Summary: 58-year-old male with CVA resulting in right hemiparesis (nondominant). 1. Gait and ADL Dysfunction secondary to CVA resulting in right hemiparesis (nondominant). - Continue PT and OT to maximize mobility, safety, endurance, and self-care. 2. CVA resulting in right hemiparesis (nondominant) - The patient is unable to do MRI due to stents in place in the lower extremities, but repeat CT head is recommended to document the presence and location of the CVA. - Needs continued PT & OT & [employer] SUPERVISOR to maximize functional mobility, safety and self-care. Risk Factor Modification: - Hypertension: Dietary and activity modifications, avoid hypotension and hypertension - Glycemic Control: HgBA1c = 5.2%, continue dietary and activity modifications, SSI, avoid hyperglycemia and hypoglycemia - Lipids: LDL is 49, continue dietary and activity modifications, continue statin - Smoking: Discussed smoking cessation - Alcohol: Discussed abstinence from alcohol - Antiplatelet: Continue aspirin and Plavix - Cardioembolic Event: Results of the echocardiogram are pending - Vascular: The patient has significant stenosis in bilateral internal carotid arteries (as noted above); highly recommend vascular surgery evaluation. If not available in the hospital, recommend evaluation as soon as possible after discharge. Dysphagia: - Bedside swallow evaluation completed. - Continue regular solids with thin liquids diet. VTE Prophylaxis: - SCDs - Lovenox being held due to thrombocytopenia Risk of Shoulder Subluxation: - Educate patient and family on positioning. - Lap tray, if needed. Risk of Spasticity: - Continue ROM, positioning. - Patient does not have increased tone Risk of Contractures: - Continue ROM, positioning. - Recommend right lower extremity PRAFO: 4 hours on/4 hours off while in bed to prevent plantarflexion contracture of the right ankle. Risk of Constipation: - Continue dietary modifications and encourage fluid intake. - Bowel protocol. Risk of Neurogenic Bladder/UTI: - Monitor for retention, incontinence, UTI. 3. Hypertensive emergency - Continue multiple antihypertensives and further management per hospitalist medicine 4. Thrombocytopenia - Hematology evaluation is pending 5. Disposition - Based on the patient's diagnosis, medical co-morbidities, and current functional status, he is a good candidate for acute inpatient rehabilitation as he would benefit from 3 hours per day of intensive therapies in at least 2 disciplines under the close medical supervision of a physician. The patient is expected to make significant gains in a relatively short period of time to the point that he can safely be discharged home with supervision and assistance from family. This recommendation was discussed with the patient, who indicated a preference for completing his rehabilitation course at [facility] in [place] due to proximity to his home. This was relayed to the personal financial planner, who will determine if his insurance will pay for acute inpatient rehabilitation and make the referral as appropriate. This case was discussed with the patient's acute care therapists, nurse on the floor, and personal financial planner. Thank you for allowing us to participate in the care of this patient. Please call with any questions. A total of 75 minutes was spent on [id number] communication with the patient and coordination of care.
--- NOTE | 2018-11-01 14:30 | RADIOLOGY REPORT (SQ) ---
EXAM DESCRIPTION: CT HEAD WITHOUT COMPLETED DATE/TIME: 11/01/2018 1:46 pm REASON FOR STUDY: follow up CVA COMPARISON: CT angio brain 10/28/2018 CT brain 10/27/2018 TECHNIQUE: Axial images acquired through the brain without intravenous contrast. Images reviewed wi th bone, brain and subdural windows. Additional sagittal and coronal reconstructions were generated. Images stored on PACS. All CT scanners at this facility use dose modulation, iterative reconstruction, and/or weight based d osing when appropriate to reduce radiation dose to as low as reasonably achievable (ALARA). [facility]: Dose Right [facility]: CareDose [facility]: Dose Right [facility]: Teradose 4D [facility]: [facility] [employer] RADIATION DOSE: CT Rad equipment meets quality standard of care and radiation dose reduction techniq ues were employed. CTDIvol: 48.6 mGy. DLP: 954 mGy-cm. mGy. LIMITATIONS: None. FINDINGS: VENTRICLES: Normal size and contour. CEREBRUM: Multiple old infarcts are present in the deep central brain including the right thalamus, b ilateral basal ganglia, left posterior limb internal capsule. Diffuse bifrontal and biparietal chron ic small vessel ischemic change. No CT evidence of large territory acute ischemic change, acute intra cranial hemorrhage, mass effect, or midline shift. CEREBELLUM: No masses. No hemorrhage. No alteration of density. No evidence for acute infarction. EXTRAAXIAL SPACES: No fluid collections. No masses. ORBITS AND GLOBE: No intra- or extraconal masses. Normal contour of globe without masses. CALVARIUM: No fracture. PARANASAL SINUSES: No fluid or mucosal thickening. SOFT TISSUES: No mass or hematoma. OTHER: No other significant finding. IMPRESSION: Stable appearance of the brain compared to both previous studies EVIDENCE OF ACUTE STROKE: NO. COMMENT: Quality ID # [id number]: Final reports with documentation of one or more dose reduction techniques (e.g., Automated exposure control, adjustment of the mA and/or kV according to patient size, use of iterative reconstruction technique) TECHNICAL DOCUMENTATION: JOB ID: [id number] [employer]- All Rights Reserved Reading location - IP/workstation name: [email or web address]
--- NOTE | 2018-11-01 16:17 | PDOC PROGRESS REPORT ---
Subjective Progress Note for:: 11/01/18 Subjective:: 11/01: Assumed care today. Reviewed chart and course. This is a 58-year-old male with a past medical history of COPD, PVD and prior CVA who presented with right- sided weakness and was admitted for acute CVA. His head CT was unremarkable but did show multiple old infarcts. MRI was not pursued apparently due to him having leg stents. No acute event overnight. This morning, he appears comfortable. His weakness continue to improve. He says that he feels stronger on the right arm and right leg. Case management working for possible inpatient rehab placement. Notably, he has low platelet counts. Patient says that he does have prior history of low platelets and had platelet transfusions of few years ago. Reason For Visit: HYPERTENSIVE EMERGENCY, ACUTE LEFT MIDDLE CEREBRAL Physical Exam Vital Signs: Temp Pulse Resp BP Pulse Ox 98.0 F 58 L 18 149/65 H 98 11/01/18 12:04 11/01/18 14:00 11/01/18 12:04 11/01/18 12:04 11/01/18 12:04 Intake & Output 10/31/18 11/01/18 11/02/18 06:59 06:59 06:59 Intake Total 1641 1080 680 Output Total 550 980 Balance 1091 100 680 Weight 180 lb 1.883 oz 179 lb 14.355 oz General appearance: PRESENT: no acute distress, well-developed, well-nourished Head exam: PRESENT: atraumatic, normocephalic Eye exam: PRESENT: conjunctiva pink, EOMI, PERRLA. ABSENT: scleral icterus Ear exam: PRESENT: normal external ear exam Mouth exam: PRESENT: moist, tongue midline Neck exam: ABSENT: carotid bruit, JVD, lymphadenopathy, thyromegaly Respiratory exam: PRESENT: clear to auscultation bruno. ABSENT: rales, rhonchi, wheezes Cardiovascular exam: PRESENT: RRR. ABSENT: diastolic murmur, rubs, systolic murmur Pulses: PRESENT: normal dorsalis pedis pul GI/Abdominal exam: PRESENT: normal bowel sounds, soft. ABSENT: distended, guarding, mass, organolmegaly, rebound, tenderness Rectal exam: PRESENT: deferred Neurological exam: PRESENT: alert, awake, oriented to person, oriented to place, oriented to time, oriented to situation, CN II-XII grossly intact, motor sensory deficit - 3/5 strength on right arm and right leg Results Laboratory Results: 11/01/18 09:15 11/01/18 09:15 11/01/18 11/01/18 09:15 09:15 WBC 4.3 RBC 3.33 L Hgb 12.5 L Hct 36.7 L MCV 110 H MCH 37.5 H MCHC 34.0 RDW 17.3 H Plt Count 34 L Seg Neutrophils % 47.8 Lymphocytes % 46.6 H Monocytes % 5.1 Eosinophils % 0.4 Basophils % 0.1 Absolute Neutrophils 2.1 Absolute Lymphocytes 2.0 Absolute Monocytes 0.2 Absolute Eosinophils 0.0 Absolute Basophils 0.0 Sodium 137.3 Potassium 4.4 Chloride 104 Carbon Dioxide 22 Anion Gap 11 BUN 25 H Creatinine 1.36 H Est GFR ( Amer) > 60 Est GFR (Non-Af Amer) 53 L Glucose 175 H Calcium 9.1 10/27/18 10/27/18 10/27/18 13:45 22:40 22:40 Creatine Kinase 170 CK-MB (CK-2) 1.12 0.98 Troponin I < 0.012 10/28/18 10/28/18 10/28/18 04:40 04:40 10:10 Creatine Kinase 192 H 238 H CK-MB (CK-2) 1.42 Troponin I < 0.012 10/28/18 10:10 Creatine Kinase CK-MB (CK-2) 1.78 Troponin I < 0.012 Impressions: Hip/Pelvis X-Ray 10/27/18 00:00 IMPRESSION: 1. No acute findings. 2. Atherosclerosis Head CTA 10/28/18 00:00 IMPRESSION: HEAVILY CALCIFIED PLAQUE IN THE RIGHT AND LEFT INTRACRANIAL INTERNAL CAROTID ARTERY. CANNOT EXCLUDE SOME DEGREE OF STENOSIS. NO CTA EVIDENCE OF STENOSIS OR ANEURYSM OF THE [place] OF ST[place]. Neck CTA 10/28/18 00:00 IMPRESSION: 1. CALCIFIED PLAQUE IN THE PROXIMAL RIGHT AND LEFT INTERNAL CAROTID ARTERIES. ESTIMATED 70% STENOSIS OF THE RIGHT INTERNAL CAROTID ARTERY AND 80 TO 90% STENOSIS OF THE LEFT INTERNAL CAROTID ARTERY. 2. DENSE CALCIFICATIONS THROUGHOUT THE RIGHT VERTEBRAL ARTERY WITH VERY LITTLE CONTRAST VISIBLE IN THE LUMEN. SUSPECT HIGH-GRADE STENOSIS AND CANNOT EXCLUDE SHORT SEGMENT OCCLUSION. 3. SCATTERED CALCIFIED PLAQUE IN THE LEFT VERTEBRAL ARTERY WITH PROBABLE HIGH- GRADE STENOSIS IN THE MID VESSEL. Head CT 11/01/18 00:00 IMPRESSION: Stable appearance of the brain compared to both previous studies EVIDENCE OF ACUTE STROKE: NO. Assessment and Plan - Diagnosis (1) Neurologic deficit due to acute ischemic cerebrovascular accident (CVA) Is this a current diagnosis for this admission?: Yes Plan: Patient presented with acute right-sided weakness. Right-sided weakness appears to be improving. CT of the head was negative for acute CVA but did show old infarcts. MRI was not pursued as mentioned due to him having leg stents. CTA was remarkable for carotid stenosis. He will follow-up with vascular surgery outpatient for further recommendation and possible intervention. Continue statin and aspirin. Continue statin. Possible inpatient rehab placement. (2) Thrombocytopenia Is this a current diagnosis for this admission?: Yes Plan: Patient does mention he has history of low platelet counts. Does have prior alcohol drinking. Will order abdominal ultrasound to evaluate for cirrhosis. Request records from PCP to check previous CBC. Will consult hematology for further recommendations. (3) PVD (peripheral vascular disease) Is this a current diagnosis for this admission?: Yes Plan: Prior left lower extremity stenting. Continue aspirin and statin. (4) COPD (chronic obstructive pulmonary disease) Is this a current diagnosis for this admission?: Yes Plan: Not in exacerbation. (5) Hypertensive emergency Is this a current diagnosis for this admission?: Yes Plan: Resolved. Blood pressures running in the 140/80s. Continue metoprolol, losartan and amlodipine. - Time Time Spent with patient: 25-34 minutes
--- NOTE | 2018-11-01 18:29 | PDOC CONSULTATION ---
Consultation Consult Date: 11/01/18 Provider Consulted: BOOKER FALLON Consult reason:: Hematology/Oncology consultation was reuqested for patient with thrombocytopenia and new CVA. History of Present Illness Admission Date/PCP: 10/27/18 21:01 ALEXEI FUENTES MD History of Present Illness: DARIA PATEL is a 58 year old male who states that he was told that he had low PLT count several years ago and saw instruction dean in [place]. He was given a PLT transfusion, but no other treatment. He presented to the ED with Right sided weakness. He denies any problems with thinking or swallowing. He has not been able to get up recently to see if his weakness has improved. He did have increased falls. No active bleeding. He was started on ASA and Plavix. I have no old CBC records, but PLT count during this admission has ranged from 26-40 and appears very stable. Past Medical History Cardiac Medical History: Reports: Hypertension, Peripheral Vascular Disease Denies: Atrial Fibrillation, Congestive Heart Failure, Coronary Artery Disease, DVT, Myocardial Infarction, Hyperlipidema, Pulmonary Embolism Pulmonary Medical History: Denies: Asthma, Chronic Obstructive Pulmonary Disease (COPD), Respiratory Failure EENT Medical History: Denies: Cataracts, Ears - Hearing aids Neurological Medical History: Denies: Hemorrhagic CVA, Ischemic CVA, Multiple Sclerosis, Seizures Endocrine Medical History: Reports: Obesity Denies: Diabetes Mellitus Type 1, Diabetes Mellitus Type 2, Hyperthyroidism, Hypothyroidism Renal/ Medical History: Denies: Chronic Kidney Disease, Nephrolithiasis Malignancy Medical History: Reports: None GI Medical History: Denies: Cirrhosis, Crohn's Disease, Hepatitis, Ulcerative Colitis Musculoskeltal Medical History: Denies: Arthritis, Gout Skin Medical History: Denies: Eczema, Psoriasis Psychiatric Medical History: Reports: Tobacco Dependency Denies: Alcohol Dependency, Depression, Substance Abuse Traumatic Medical History: Reports: None Hematology: Denies: Anemia, Bleeding Tendencies Infectious Medical History: Reports: None Past Surgical History Past Surgical History: Reports: Vascular Surgery - bilateral lower extremities Social History Information Source: Patient Occupation: , with 2 step-children. 2 Dogs. Lives with: Spouse/Significant other Smoking Status: Current Every Day Smoker Cigarettes Packs Per Day: 0.5 Number of Years Smokin Last Time Smoked: 10/27/18 Frequency of Alcohol Use: Social Hx Recreational Drug Use: No Drugs: None Hx Prescription Drug Abuse: No - Advance Directive Resuscitation Status: Full Code Family History Parental Family History Reviewed: Yes - Mother with CAD and DM. Father of CVA Children Family History Reviewed: NA Sibling(s) Family History Reviewed.: Yes - Brother with DM Medication/Allergy Home Medications: Irbesartan 150 mg PO DAILY 10/28/18 Allergies/Adverse Reactions: No Known Allergies Allergy (Unverified 10/27/18 13:03) Review of Systems Constitutional: ABSENT: fever(s), headache(s) Eyes: ABSENT: visual disturbances Ears: ABSENT: hearing changes Nose, Mouth, and Throat: ABSENT: sore throat Cardiovascular: ABSENT: chest pain Respiratory: ABSENT: dyspnea Gastrointestinal: ABSENT: coffee ground emesis, melena Genitourinary: ABSENT: hematuria Musculoskeletal: ABSENT: back pain Integumentary: ABSENT: rash Neurological: PRESENT: focal weakness, frequent falls, lack of coordination Psychiatric: ABSENT: anxiety, depression Hematologic/Lymphatic: ABSENT: easy bruising Physical Exam Vital Signs: Temp Pulse Resp BP Pulse Ox 98.1 F 57 L 18 152/78 H 96 11/01/18 15:47 11/01/18 15:47 11/01/18 15:47 11/01/18 15:47 11/01/18 15:47 Intake & Output 10/31/18 11/01/18 11/02/18 06:59 06:59 06:59 Intake Total 1641 1080 920 Output Total 550 980 200 Balance 1091 100 720 Weight 81.7 kg 81.6 kg General appearance: PRESENT: well-developed, well-nourished Exam: 58 year old male. Head exam: PRESENT: atraumatic, normocephalic Eye exam: PRESENT: EOMI Mouth exam: PRESENT: tongue midline Neck exam: ABSENT: lymphadenopathy, tenderness, thyromegaly Respiratory exam: PRESENT: clear to auscultation bruno, unlabored Cardiovascular exam: PRESENT: RRR GI/Abdominal exam: PRESENT: soft. ABSENT: organolmegaly, tenderness Extremities exam: PRESENT: other - Right ankle in walking book. Neurological exam: PRESENT: other - Right sided weakness LE>UE. Psychiatric exam: ABSENT: anxious Focused psych exam: ABSENT: restlessness Skin exam: PRESENT: normal color Results Laboratory Results: 11/01/18 09:15 11/01/18 09:15 11/01/18 11/01/18 09:15 09:15 WBC 4.3 RBC 3.33 L Hgb 12.5 L Hct 36.7 L MCV 110 H MCH 37.5 H MCHC 34.0 RDW 17.3 H Plt Count 34 L Seg Neutrophils % 47.8 Lymphocytes % 46.6 H Monocytes % 5.1 Eosinophils % 0.4 Basophils % 0.1 Absolute Neutrophils 2.1 Absolute Lymphocytes 2.0 Absolute Monocytes 0.2 Absolute Eosinophils 0.0 Absolute Basophils 0.0 Sodium 137.3 Potassium 4.4 Chloride 104 Carbon Dioxide 22 Anion Gap 11 BUN 25 H Creatinine 1.36 H Est GFR ( Amer) > 60 Est GFR (Non-Af Amer) 53 L Glucose 175 H Calcium 9.1 10/27/18 10/27/18 10/27/18 13:45 22:40 22:40 Creatine Kinase 170 CK-MB (CK-2) 1.12 0.98 Troponin I < 0.012 10/28/18 10/28/18 10/28/18 04:40 04:40 10:10 Creatine Kinase 192 H 238 H CK-MB (CK-2) 1.42 Troponin I < 0.012 10/28/18 10:10 Creatine Kinase CK-MB (CK-2) 1.78 Troponin I < 0.012 Impressions: Hip/Pelvis X-Ray 10/27/18 00:00 IMPRESSION: 1. No acute findings. 2. Atherosclerosis Head CTA 10/28/18 00:00 IMPRESSION: HEAVILY CALCIFIED PLAQUE IN THE RIGHT AND LEFT INTRACRANIAL INTERNAL CAROTID ARTERY. CANNOT EXCLUDE SOME DEGREE OF STENOSIS. NO CTA EVIDENCE OF STENOSIS OR ANEURYSM OF THE [place] OF STONE. Neck CTA 10/28/18 00:00 IMPRESSION: 1. CALCIFIED PLAQUE IN THE PROXIMAL RIGHT AND LEFT INTERNAL CAROTID ARTERIES. ESTIMATED 70% STENOSIS OF THE RIGHT INTERNAL CAROTID ARTERY AND 80 TO 90% STENOSIS OF THE LEFT INTERNAL CAROTID ARTERY. 2. DENSE CALCIFICATIONS THROUGHOUT THE RIGHT VERTEBRAL ARTERY WITH VERY LITTLE CONTRAST VISIBLE IN THE LUMEN. SUSPECT HIGH-GRADE STENOSIS AND CANNOT EXCLUDE SHORT SEGMENT OCCLUSION. 3. SCATTERED CALCIFIED PLAQUE IN THE LEFT VERTEBRAL ARTERY WITH PROBABLE HIGH- GRADE STENOSIS IN THE MID VESSEL. Head CT 11/01/18 00:00 IMPRESSION: Stable appearance of the brain compared to both previous studies EVIDENCE OF ACUTE STROKE: NO. Status: Image reviewed by me Assessment & Plan - Diagnosis (1) Neurologic deficit due to acute ischemic cerebrovascular accident (CVA) Is this a current diagnosis for this admission?: Yes Plan: I agree with ASA and Plavix. Although his PLT count is <50, it appears stable. As long as there is no bleeding, I agree with continuing these medications. He should be monitored closely for bleeding. (2) Thrombocytopenia Is this a current diagnosis for this admission?: Yes Plan: Watch closely and try to get old records. He should follow-up with hematology as outpatient. I am happy to follow him if he does not wish to follow-up in [place]. There is no evidence of TTP on smear, per pathology. - Plan Summary Plan Summary: I will continue to follow. Please call with any questions or concerns.
[2018-11-01] MEDS: ATORVASTATIN CALCIUM 40 MG TABLET PO SCH (21:35)
[2018-11-02 05:23] LABS: ABSOLUTE LYMPHOCYTES (AUTO) 2.5 10^3/uL (0.5-4.7); ABSOLUTE MONOCYTES (AUTO) 0.3 10^3/uL (0.1-1.4); BASOPHILS % (AUTO) 0.1 % (0-2); EOSINOPHILS % (AUTO) 0.4 % (0-6); HEMATOCRIT 36.2 % (37.9-51.0); HEMOGLOBIN 12.4 g/dL (13.5-17.0); LYMPHOCYTES % (AUTO) 51.5 % (13-45); MEAN CORPUSCULAR HEMOGLOBIN 37.6 pg (27.0-33.4); MEAN CORPUSCULAR HGB CONC 34.3 g/dL (32.0-36.0); MEAN CORPUSCULAR VOLUME 110 fl (80-97); MONOCYTES % (AUTO) 7.1 % (3-13); RED CELL DISTRIBUTION WIDTH 16.9 % (11.5-14.0); SEGMENTED NEUTROPHILS % (AUTO) 40.9 % (42-78); TOTAL CELLS COUNTED % (AUTO) 100 %; WHITE BLOOD COUNT 4.9 10^3/uL (4.0-10.5)
[2018-11-02 05:30] LABS: ANION GAP 9 (5-19); BLOOD UREA NITROGEN 26 mg/dL (7-20); CALCIUM 9.4 mg/dL (8.4-10.2); CARBON DIOXIDE 25 mmol/L (22-30); CHLORIDE 105 mmol/L (98-107); GLUCOSE 97 mg/dL (75-110); POTASSIUM 4.2 mmol/L (3.6-5.0); SODIUM 138.5 mmol/L (137-145)
[2018-11-02 06:15] LABS: PLATELET COUNT 32 10^3/uL (150-450)
[2018-11-02 06:21] LABS: ANISOCYTOSIS 1+; PLATELET COMMENT DECREASED
--- NOTE | 2018-11-02 06:50 | RADIOLOGY REPORT (SQ) ---
EXAM DESCRIPTION: US ABDOMEN COMPLETED DATE/TME: 11/02/2018 00:00 CLINICAL HISTORY: 58 years Male, assess for cirrhosis,splenomegaly Comparison: None. LIMITATIONS: Position/movement. Portable exam. FINDINGS: Gallbladder, negative sonographic Davila's test, coarsened hepatic echotexture, moderate hepatic steatosis, a 0.6-cm diameter common bile duct, no intrahepatic ductal dilation, hepatopetal patent flow of the portal vein, partially obscured 11 cm spleen, 11-cm left kidney, 10-cm right kidney, obscured pancreas, visualized vasculature/abdominal aorta, and no significant ascites appear otherwise unremarkable. IMPRESSION: No acute findings. Hepatic steatosis. Mildly coarsened hepatic echotexture; differential diagnosis includes cirrhosis, as queried. Limitation.
--- NOTE | 2018-11-02 07:30 | PDOC PROGRESS REPORT ---
Subjective Progress Note for:: 11/02/18 Subjective:: Patient without new complaints this morning. No active bleeding. Nurses report no new issues today. Reason For Visit: HYPERTENSIVE EMERGENCY, ACUTE LEFT MIDDLE CEREBRAL Physical Exam Vital Signs: Temp Pulse Resp BP Pulse Ox 97.9 F 53 L 20 148/72 H 95 11/02/18 03:16 11/02/18 03:16 11/02/18 03:16 11/02/18 03:16 11/02/18 03:16 Intake & Output 11/01/18 11/02/18 11/03/18 06:59 06:59 06:59 Intake Total 1080 920 Output Total 980 1125 Balance 100 -205 Weight 81.6 kg 81.8 kg General appearance: PRESENT: no acute distress Head exam: PRESENT: normocephalic Respiratory exam: PRESENT: unlabored Extremities exam: ABSENT: pedal edema Neurological exam: PRESENT: alert, awake Psychiatric exam: PRESENT: appropriate affect Skin exam: PRESENT: normal color Results Laboratory Results: 11/02/18 04:38 11/02/18 04:38 11/01/18 11/01/18 11/02/18 09:15 09:15 04:38 WBC 4.3 4.9 RBC 3.33 L 3.30 L Hgb 12.5 L 12.4 L Hct 36.7 L 36.2 L MCV 110 H 110 H MCH 37.5 H 37.6 H MCHC 34.0 34.3 RDW 17.3 H 16.9 H Plt Count 34 L 32 L Seg Neutrophils % 47.8 40.9 L Lymphocytes % 46.6 H 51.5 H Monocytes % 5.1 7.1 Eosinophils % 0.4 0.4 Basophils % 0.1 0.1 Absolute Neutrophils 2.1 2.0 Absolute Lymphocytes 2.0 2.5 Absolute Monocytes 0.2 0.3 Absolute Eosinophils 0.0 0.0 Absolute Basophils 0.0 0.0 Sodium 137.3 Potassium 4.4 Chloride 104 Carbon Dioxide 22 Anion Gap 11 BUN 25 H Creatinine 1.36 H Est GFR ( Amer) > 60 Est GFR (Non-Af Amer) 53 L Glucose 175 H Calcium 9.1 11/02/18 04:38 WBC RBC Hgb Hct MCV MCH MCHC RDW Plt Count Seg Neutrophils % Lymphocytes % Monocytes % Eosinophils % Basophils % Absolute Neutrophils Absolute Lymphocytes Absolute Monocytes Absolute Eosinophils Absolute Basophils Sodium 138.5 Potassium 4.2 Chloride 105 Carbon Dioxide 25 Anion Gap 9 BUN 26 H Creatinine 1.45 H Est GFR ( Amer) > 60 Est GFR (Non-Af Amer) 50 L Glucose 97 Calcium 9.4 10/27/18 10/27/18 10/27/18 13:45 22:40 22:40 Creatine Kinase 170 CK-MB (CK-2) 1.12 0.98 Troponin I < 0.012 10/28/18 10/28/18 10/28/18 04:40 04:40 10:10 Creatine Kinase 192 H 238 H CK-MB (CK-2) 1.42 Troponin I < 0.012 10/28/18 10:10 Creatine Kinase CK-MB (CK-2) 1.78 Troponin I < 0.012 Impressions: Hip/Pelvis X-Ray 10/27/18 00:00 IMPRESSION: 1. No acute findings. 2. Atherosclerosis Head CTA 10/28/18 00:00 IMPRESSION: HEAVILY CALCIFIED PLAQUE IN THE RIGHT AND LEFT INTRACRANIAL INTERNAL CAROTID ARTERY. CANNOT EXCLUDE SOME DEGREE OF STENOSIS. NO CTA EVIDENCE OF STENOSIS OR ANEURYSM OF THE [place] OF STONE. Neck CTA 10/28/18 00:00 IMPRESSION: 1. CALCIFIED PLAQUE IN THE PROXIMAL RIGHT AND LEFT INTERNAL CAROTID ARTERIES. ESTIMATED 70% STENOSIS OF THE RIGHT INTERNAL CAROTID ARTERY AND 80 TO 90% STENOSIS OF THE LEFT INTERNAL CAROTID ARTERY. 2. DENSE CALCIFICATIONS THROUGHOUT THE RIGHT VERTEBRAL ARTERY WITH VERY LITTLE CONTRAST VISIBLE IN THE LUMEN. SUSPECT HIGH-GRADE STENOSIS AND CANNOT EXCLUDE SHORT SEGMENT OCCLUSION. 3. SCATTERED CALCIFIED PLAQUE IN THE LEFT VERTEBRAL ARTERY WITH PROBABLE HIGH- GRADE STENOSIS IN THE MID VESSEL. Head CT 11/01/18 00:00 IMPRESSION: Stable appearance of the brain compared to both previous studies EVIDENCE OF ACUTE STROKE: NO. Abdomen Ultrasound 11/02/18 00:00 IMPRESSION: No acute findings. Hepatic steatosis. Mildly coarsened hepatic echotexture; differential diagnosis includes cirrhosis, as queried. Limitation. Assessment & Plan - Diagnosis (1) Neurologic deficit due to acute ischemic cerebrovascular accident (CVA) Is this a current diagnosis for this admission?: Yes Plan: No change. On ASA and Plavix. (2) Thrombocytopenia Is this a current diagnosis for this admission?: Yes Plan: Chronic and unchanged. No active bleeding. Should be OK to continue ASA and plavix, but should be on bleeding precautions as well. No evidence of splenomegaly. No evidence of TTP. HGB stable.
[2018-11-02] MEDS: METOPROLOL SUCCINATE 50 MG TAB.SR.24H PO SCH (09:19)
[2018-11-02] MEDS: THIAMINE HCL 100 MG TABLET PO SCH (09:19)
[2018-11-02] MEDS: CYANOCOBALAMIN (VITAMIN B-12) 1,000 MCG TABLET PO SCH (09:20)
[2018-11-02] MEDS: FOLIC ACID 1 MG TABLET PO SCH (09:20)
[2018-11-02] MEDS: ASPIRIN 81 MG TABLET, ENT COATED PO SCH (09:20)
[2018-11-02] MEDS: LOSARTAN POTASSIUM 50 MG TABLET PO SCH (09:20)
[2018-11-02] MEDS: AMLODIPINE BESYLATE 10 MG TABLET PO SCH (09:20)
[2018-11-02] MEDS: FAMOTIDINE 20 MG TABLET PO SCH ×2 (09:20→22:03)
[2018-11-02] MEDS: CLOPIDOGREL BISULFATE 75 MG TABLET PO SCH (09:20)
--- NOTE | 2018-11-02 13:19 | PDOC PROGRESS REPORT ---
Subjective Progress Note for:: 11/02/18 Subjective:: 11/01: Assumed care today. Reviewed chart and course. This is a 58-year-old male with a past medical history of COPD, PVD and prior CVA who presented with right- sided weakness and was admitted for acute CVA. His head CT was unremarkable but did show multiple old infarcts. MRI was not pursued apparently due to him having leg stents. This morning, he appears comfortable. His weakness continue to improve. He says that he feels stronger on the right arm and right leg. Case management working for possible inpatient rehab placement. Notably, he has low platelet counts. Patient says that he does have prior history of low platelets and had platelet transfusions of few years ago. 11/02: No acute event overnight. Denies acute complaints. He does continue to h ave right-sided weakness albeit slightly improved from when he got admitted. Awaiting Medicaid approval for acute rehab placement. Reason For Visit: HYPERTENSIVE EMERGENCY, ACUTE LEFT MIDDLE CEREBRAL Physical Exam Vital Signs: Temp Pulse Resp BP Pulse Ox 98.0 F 51 L 17 164/70 H 98 11/02/18 08:13 11/02/18 08:13 11/02/18 08:13 11/02/18 08:13 11/02/18 08:13 Intake & Output 11/01/18 11/02/18 11/03/18 06:59 06:59 06:59 Intake Total 1080 920 Output Total 980 1125 Balance 100 -205 Weight 179 lb 14.355 oz 180 lb 5.41 oz General appearance: PRESENT: no acute distress, well-developed, well-nourished Head exam: PRESENT: atraumatic, normocephalic Eye exam: PRESENT: conjunctiva pink, EOMI, PERRLA. ABSENT: scleral icterus Ear exam: PRESENT: normal external ear exam Mouth exam: PRESENT: moist, tongue midline Neck exam: ABSENT: carotid bruit, JVD, lymphadenopathy, thyromegaly Respiratory exam: PRESENT: clear to auscultation bruno. ABSENT: rales, rhonchi, wheezes Cardiovascular exam: PRESENT: RRR. ABSENT: diastolic murmur, rubs, systolic murmur Pulses: PRESENT: normal dorsalis pedis pul GI/Abdominal exam: PRESENT: normal bowel sounds, soft. ABSENT: distended, guarding, mass, organolmegaly, rebound, tenderness Rectal exam: PRESENT: deferred Extremities exam: PRESENT: full ROM. ABSENT: calf tenderness, clubbing, pedal edema Neurological exam: PRESENT: alert, awake, oriented to person, oriented to place, oriented to time, oriented to situation, CN II-XII grossly intact, motor sensory deficit - 3/5 RSW Results Laboratory Results: 11/02/18 04:38 11/02/18 04:38 11/02/18 11/02/18 04:38 04:38 WBC 4.9 RBC 3.30 L Hgb 12.4 L Hct 36.2 L MCV 110 H MCH 37.6 H MCHC 34.3 RDW 16.9 H Plt Count 32 L Seg Neutrophils % 40.9 L Lymphocytes % 51.5 H Monocytes % 7.1 Eosinophils % 0.4 Basophils % 0.1 Absolute Neutrophils 2.0 Absolute Lymphocytes 2.5 Absolute Monocytes 0.3 Absolute Eosinophils 0.0 Absolute Basophils 0.0 Sodium 138.5 Potassium 4.2 Chloride 105 Carbon Dioxide 25 Anion Gap 9 BUN 26 H Creatinine 1.45 H Est GFR ( Amer) > 60 Est GFR (Non-Af Amer) 50 L Glucose 97 Calcium 9.4 10/27/18 10/27/18 10/27/18 13:45 22:40 22:40 Creatine Kinase 170 CK-MB (CK-2) 1.12 0.98 Troponin I < 0.012 10/28/18 10/28/18 10/28/18 04:40 04:40 10:10 Creatine Kinase 192 H 238 H CK-MB (CK-2) 1.42 Troponin I < 0.012 10/28/18 10:10 Creatine Kinase CK-MB (CK-2) 1.78 Troponin I < 0.012 Impressions: Hip/Pelvis X-Ray 10/27/18 00:00 IMPRESSION: 1. No acute findings. 2. Atherosclerosis Head CTA 10/28/18 00:00 IMPRESSION: HEAVILY CALCIFIED PLAQUE IN THE RIGHT AND LEFT INTRACRANIAL INTERNAL CAROTID ARTERY. CANNOT EXCLUDE SOME DEGREE OF STENOSIS. NO CTA EVIDENCE OF STENOSIS OR ANEURYSM OF THE [place] OF [place]. Neck CTA 10/28/18 00:00 IMPRESSION: 1. CALCIFIED PLAQUE IN THE PROXIMAL RIGHT AND LEFT INTERNAL CAROTID ARTERIES. ESTIMATED 70% STENOSIS OF THE RIGHT INTERNAL CAROTID ARTERY AND 80 TO 90% STENOSIS OF THE LEFT INTERNAL CAROTID ARTERY. 2. DENSE CALCIFICATIONS THROUGHOUT THE RIGHT VERTEBRAL ARTERY WITH VERY LITTLE CONTRAST VISIBLE IN THE LUMEN. SUSPECT HIGH-GRADE STENOSIS AND CANNOT EXCLUDE SHORT SEGMENT OCCLUSION. 3. SCATTERED CALCIFIED PLAQUE IN THE LEFT VERTEBRAL ARTERY WITH PROBABLE HIGH- GRADE STENOSIS IN THE MID VESSEL. Head CT 11/01/18 00:00 IMPRESSION: Stable appearance of the brain compared to both previous studies EVIDENCE OF ACUTE STROKE: NO. Abdomen Ultrasound 11/02/18 00:00 IMPRESSION: No acute findings. Hepatic steatosis. Mildly coarsened hepatic echotexture; differential diagnosis includes cirrhosis, as queried. Limitation. Assessment and Plan - Diagnosis (1) Neurologic deficit due to acute ischemic cerebrovascular accident (CVA) Is this a current diagnosis for this admission?: Yes Plan: Patient presented with acute right-sided weakness. Right-sided weakness appears to be improving. CT of the head was negative for acute CVA but did show old infarcts. MRI was not pursued as mentioned due to him having leg stents. CTA was remarkable for carotid stenosis. He will follow-up with vascular surgery outpatient for further recommendation and possible intervention. Continue statin and aspirin. 11/02: He does continue to have right-sided weakness albeit slightly improved from when he got admitted. Awaiting Medicaid approval for acute rehab placement. (2) Thrombocytopenia Is this a current diagnosis for this admission?: Yes Plan: 11/01: Patient does mention he has history of low platelet counts. Does have prior alcohol drinking. Will order abdominal ultrasound to evaluate for cirrhosis. Request records from PCP to check previous CBC. Will consult hematology for further recommendations. 11/02: Thrombocytopenia is chronic in nature. Questionable chronic ITP or cirrhosis likely contributing to chronic thrombocytopenia as abdominal ultrasound showed possible cirrhosis. (3) PVD (peripheral vascular disease) Is this a current diagnosis for this admission?: Yes Plan: Prior left lower extremity stenting. Continue aspirin and statin. (4) COPD (chronic obstructive pulmonary disease) Is this a current diagnosis for this admission?: Yes Plan: Not in exacerbation. (5) Hypertensive emergency Is this a current diagnosis for this admission?: Yes Plan: Resolved. Blood pressures running in the 140/80s. Continue metoprolol, losartan and amlodipine. - Time Time Spent with patient: 25-34 minutes
[2018-11-02] MEDS: ATORVASTATIN CALCIUM 40 MG TABLET PO SCH (22:03)
[2018-11-03] MEDS: NORMAL SALINE 1000 ML 1,000 ML IV PRN (09:58)
[2018-11-03] MEDS: AMLODIPINE BESYLATE 10 MG TABLET PO SCH (09:59)
[2018-11-03] MEDS: FOLIC ACID 1 MG TABLET PO SCH (09:59)
[2018-11-03] MEDS: THIAMINE HCL 100 MG TABLET PO SCH (09:59)
[2018-11-03] MEDS: CLOPIDOGREL BISULFATE 75 MG TABLET PO SCH (09:59)
[2018-11-03] MEDS: CYANOCOBALAMIN (VITAMIN B-12) 1,000 MCG TABLET PO SCH (09:59)
[2018-11-03] MEDS: ASPIRIN 81 MG TABLET, ENT COATED PO SCH (09:59)
[2018-11-03] MEDS: FAMOTIDINE 20 MG TABLET PO SCH ×2 (09:59→21:57)
[2018-11-03] MEDS: LOSARTAN POTASSIUM 50 MG TABLET PO SCH (09:59)
[2018-11-03] MEDS: METOPROLOL SUCCINATE 50 MG TAB.SR.24H PO SCH (10:00)
--- NOTE | 2018-11-03 12:57 | PDOC PROGRESS REPORT ---
Subjective Progress Note for:: 11/03/18 Subjective:: 11/01: Assumed care today. Reviewed chart and course. This is a 58-year-old male with a past medical history of COPD, PVD and prior CVA who presented with right- sided weakness and was admitted for acute CVA. His head CT was unremarkable but did show multiple old infarcts. MRI was not pursued apparently due to him having leg stents. This morning, he appears comfortable. His weakness continue to improve. He says that he feels stronger on the right arm and right leg. Case management working for possible inpatient rehab placement. Notably, he has low platelet counts. Patient says that he does have prior history of low platelets and had platelet transfusions of few years ago. 11/02: Denies acute complaints. He does continue to have right-sided weakness al beit slightly improved from when he got admitted. 11/03: No acute event overnight. He denies acute complaints. Patient is deemed fit for discharge to facility and is just awaiting Medicaid approval for acute rehab placement. Reason For Visit: HYPERTENSIVE EMERGENCY, ACUTE LEFT MIDDLE CEREBRAL Physical Exam Vital Signs: Temp Pulse Resp BP Pulse Ox 97.5 F 58 L 16 150/72 H 97 11/03/18 08:04 11/03/18 08:04 11/03/18 08:04 11/03/18 08:04 11/03/18 08:04 Intake & Output 11/02/18 11/03/18 11/04/18 06:59 06:59 06:59 Intake Total 920 710 Output Total 1125 675 Balance -205 35 Weight 180 lb 5.41 oz 180 lb 1.883 oz 180 lb 1.883 oz General appearance: PRESENT: no acute distress, well-developed, well-nourished Head exam: PRESENT: atraumatic, normocephalic Eye exam: PRESENT: conjunctiva pink, EOMI, PERRLA. ABSENT: scleral icterus Ear exam: PRESENT: normal external ear exam Neck exam: ABSENT: carotid bruit, JVD, lymphadenopathy, thyromegaly Respiratory exam: PRESENT: clear to auscultation bruno. ABSENT: rales, rhonchi, wheezes Cardiovascular exam: PRESENT: RRR. ABSENT: diastolic murmur, rubs, systolic murmur Pulses: PRESENT: normal dorsalis pedis pul GI/Abdominal exam: PRESENT: normal bowel sounds, soft. ABSENT: distended, guarding, mass, organolmegaly, rebound, tenderness Rectal exam: PRESENT: deferred Extremities exam: PRESENT: full ROM. ABSENT: calf tenderness, clubbing, pedal edema Neurological exam: PRESENT: alert, awake, oriented to person, oriented to place, oriented to time, oriented to situation, CN II-XII grossly intact, motor sensory deficit - 3/5 motor strength on the right Results Laboratory Results: 11/02/18 04:38 11/02/18 04:38 10/27/18 10/27/18 10/27/18 13:45 22:40 22:40 Creatine Kinase 170 CK-MB (CK-2) 1.12 0.98 Troponin I < 0.012 10/28/18 10/28/18 10/28/18 04:40 04:40 10:10 Creatine Kinase 192 H 238 H CK-MB (CK-2) 1.42 Troponin I < 0.012 10/28/18 10:10 Creatine Kinase CK-MB (CK-2) 1.78 Troponin I < 0.012 Impressions: Hip/Pelvis X-Ray 10/27/18 00:00 IMPRESSION: 1. No acute findings. 2. Atherosclerosis Head CTA 10/28/18 00:00 IMPRESSION: HEAVILY CALCIFIED PLAQUE IN THE RIGHT AND LEFT INTRACRANIAL INTERNAL CAROTID ARTERY. CANNOT EXCLUDE SOME DEGREE OF STENOSIS. NO CTA EVIDENCE OF STENOSIS OR ANEURYSM OF THE [place] OF [place]. Neck CTA 10/28/18 00:00 IMPRESSION: 1. CALCIFIED PLAQUE IN THE PROXIMAL RIGHT AND LEFT INTERNAL CAROTID ARTERIES. ESTIMATED 70% STENOSIS OF THE RIGHT INTERNAL CAROTID ARTERY AND 80 TO 90% STENOSIS OF THE LEFT INTERNAL CAROTID ARTERY. 2. DENSE CALCIFICATIONS THROUGHOUT THE RIGHT VERTEBRAL ARTERY WITH VERY LITTLE CONTRAST VISIBLE IN THE LUMEN. SUSPECT HIGH-GRADE STENOSIS AND CANNOT EXCLUDE SHORT SEGMENT OCCLUSION. 3. SCATTERED CALCIFIED PLAQUE IN THE LEFT VERTEBRAL ARTERY WITH PROBABLE HIGH-GR AVERY STENOSIS IN THE MID VESSEL. Head CT 11/01/18 00:00 IMPRESSION: Stable appearance of the brain compared to both previous studies EVIDENCE OF ACUTE STROKE: NO. Abdomen Ultrasound 11/02/18 00:00 IMPRESSION: No acute findings. Hepatic steatosis. Mildly coarsened hepatic echotexture; differential diagnosis includes cirrhosis, as queried. Limitation. Assessment and Plan - Diagnosis (1) Neurologic deficit due to acute ischemic cerebrovascular accident (CVA) Is this a current diagnosis for this admission?: Yes Plan: Patient presented with acute right-sided weakness. Right-sided weakness appears to be improving. CT of the head was negative for acute CVA but did show old infarcts. MRI was not pursued as mentioned due to him having leg stents. CTA was remarkable for carotid stenosis. He will follow-up with vascular surgery outpatient for further recommendation and possible intervention. Continue statin and aspirin. 11/02: He does continue to have right-sided weakness albeit slightly improved from when he got admitted. Awaiting Medicaid approval for acute rehab placement. 11/03: Patient is deemed fit for discharge to facility and is just awaiting Medicaid approval for acute rehab placement. (2) Thrombocytopenia Is this a current diagnosis for this admission?: Yes Plan: 11/01: Patient does mention he has history of low platelet counts. Does have prior alcohol drinking. Will order abdominal ultrasound to evaluate for cirrhosis. Request records from PCP to check previous CBC. Will consult hematology for further recommendations. 11/02: Thrombocytopenia is chronic in nature. Questionable chronic ITP or cirrhosis likely contributing to chronic thrombocytopenia as abdominal ultrasound showed possible cirrhosis. (3) PVD (peripheral vascular disease) Is this a current diagnosis for this admission?: Yes Plan: Prior left lower extremity stenting. Continue aspirin and statin. (4) COPD (chronic obstructive pulmonary disease) Is this a current diagnosis for this admission?: Yes Plan: Not in exacerbation. (5) Hypertensive emergency Is this a current diagnosis for this admission?: Yes Plan: Resolved. Blood pressures running in the 140/80s. Continue metoprolol, losartan and amlodipine. (6) Acute kidney injury Is this a current diagnosis for this admission?: Yes Plan: IV fluids with normal at 50 cc/hr. Repeat BMP tomorrow.
[2018-11-03] MEDS: ATORVASTATIN CALCIUM 40 MG TABLET PO SCH (21:57)
[2018-11-04] MEDS: NORMAL SALINE 1000 ML 1,000 ML IV PRN (05:11)
[2018-11-04 06:41] LABS: ANION GAP 10 (5-19); BLOOD UREA NITROGEN 29 mg/dL (7-20); CALCIUM 9.2 mg/dL (8.4-10.2); CARBON DIOXIDE 23 mmol/L (22-30); CHLORIDE 106 mmol/L (98-107); GLUCOSE 95 mg/dL (75-110); POTASSIUM 4.3 mmol/L (3.6-5.0); SODIUM 139.2 mmol/L (137-145)
--- NOTE | 2018-11-04 08:30 | PDOC PROGRESS REPORT ---
Subjective Progress Note for:: 11/04/18 Subjective:: Patient without complaints. No active bleeding. His strength is getting better. Awaiting rehab placement. Reason For Visit: HYPERTENSIVE EMERGENCY, ACUTE LEFT MIDDLE CEREBRAL Physical Exam Vital Signs: Temp Pulse Resp BP Pulse Ox 98.5 F 51 L 16 147/68 H 95 11/04/18 04:02 11/04/18 07:00 11/04/18 04:02 11/04/18 04:02 11/04/18 04:02 Intake & Output 11/03/18 11/04/18 11/05/18 06:59 06:59 06:59 Intake Total 710 1943 Output Total 675 1350 Balance 35 593 Weight 81.7 kg 81.1 kg General appearance: PRESENT: well-developed, well-nourished Head exam: PRESENT: normocephalic Respiratory exam: PRESENT: unlabored Neurological exam: PRESENT: other - moving all 4 extremities now. Skin exam: PRESENT: normal color Results Laboratory Results: 11/02/18 04:38 11/04/18 05:35 11/04/18 05:35 Sodium 139.2 Potassium 4.3 Chloride 106 Carbon Dioxide 23 Anion Gap 10 BUN 29 H Creatinine 1.38 H Est GFR ( Amer) > 60 Est GFR (Non-Af Amer) 53 L Glucose 95 Calcium 9.2 10/27/18 10/27/18 10/27/18 13:45 22:40 22:40 Creatine Kinase 170 CK-MB (CK-2) 1.12 0.98 Troponin I < 0.012 10/28/18 10/28/18 10/28/18 04:40 04:40 10:10 Creatine Kinase 192 H 238 H CK-MB (CK-2) 1.42 Troponin I < 0.012 10/28/18 10:10 Creatine Kinase CK-MB (CK-2) 1.78 Troponin I < 0.012 Impressions: Hip/Pelvis X-Ray 10/27/18 00:00 IMPRESSION: 1. No acute findings. 2. Atherosclerosis Head CTA 10/28/18 00:00 IMPRESSION: HEAVILY CALCIFIED PLAQUE IN THE RIGHT AND LEFT INTRACRANIAL INTERNAL CAROTID ARTERY. CANNOT EXCLUDE SOME DEGREE OF STENOSIS. NO CTA EVIDENCE OF STENOSIS OR ANEURYSM OF THE [place] OF STONE. Neck CTA 10/28/18 00:00 IMPRESSION: 1. CALCIFIED PLAQUE IN THE PROXIMAL RIGHT AND LEFT INTERNAL CAROTID ARTERIES. ESTIMATED 70% STENOSIS OF THE RIGHT INTERNAL CAROTID ARTERY AND 80 TO 90% STENOSIS OF THE LEFT INTERNAL CAROTID ARTERY. 2. DENSE CALCIFICATIONS THROUGHOUT THE RIGHT VERTEBRAL ARTERY WITH VERY LITTLE CONTRAST VISIBLE IN THE LUMEN. SUSPECT HIGH-GRADE STENOSIS AND CANNOT EXCLUDE SHORT SEGMENT OCCLUSION. 3. SCATTERED CALCIFIED PLAQUE IN THE LEFT VERTEBRAL ARTERY WITH PROBABLE HIGH- GRADE STENOSIS IN THE MID VESSEL. Head CT 11/01/18 00:00 IMPRESSION: Stable appearance of the brain compared to both previous studies EVIDENCE OF ACUTE STROKE: NO. Abdomen Ultrasound 11/02/18 00:00 IMPRESSION: No acute findings. Hepatic steatosis. Mildly coarsened hepatic echotexture; differential diagnosis includes cirrhosis, as queried. Limitation. Assessment & Plan - Diagnosis (1) Neurologic deficit due to acute ischemic cerebrovascular accident (CVA) Is this a current diagnosis for this admission?: Yes Plan: This is improving. Plan for rehab [facility]. (2) Thrombocytopenia Is this a current diagnosis for this admission?: Yes Plan: This appears to be his baseline. He continue ASA and plavix with no change in HGB or PLT. Would hold these medications for any sign of bleeding. Thrombocytopenia may be due to chronic liver dysfunction, or chronic ITP. No evidence of TTP.
[2018-11-04] MEDS: AMLODIPINE BESYLATE 10 MG TABLET PO SCH (09:28)
[2018-11-04] MEDS: CLOPIDOGREL BISULFATE 75 MG TABLET PO SCH (09:28)
[2018-11-04] MEDS: FAMOTIDINE 20 MG TABLET PO SCH ×2 (09:29→21:22)
[2018-11-04] MEDS: CYANOCOBALAMIN (VITAMIN B-12) 1,000 MCG TABLET PO SCH (09:29)
[2018-11-04] MEDS: ASPIRIN 81 MG TABLET, ENT COATED PO SCH (09:29)
[2018-11-04] MEDS: LOSARTAN POTASSIUM 50 MG TABLET PO SCH (09:29)
[2018-11-04] MEDS: METOPROLOL SUCCINATE 50 MG TAB.SR.24H PO SCH (09:29)
[2018-11-04] MEDS: FOLIC ACID 1 MG TABLET PO SCH (09:30)
[2018-11-04] MEDS: THIAMINE HCL 100 MG TABLET PO SCH (09:30)
--- NOTE | 2018-11-04 14:36 | PDOC PROGRESS REPORT ---
Subjective Progress Note for:: 11/04/18 Subjective:: 11/01: Assumed care today. Reviewed chart and course. This is a 58-year-old male with a past medical history of COPD, PVD and prior CVA who presented with right- sided weakness and was admitted for acute CVA. His head CT was unremarkable but did show multiple old infarcts. MRI was not pursued apparently due to him having leg stents. This morning, he appears comfortable. His weakness continue to improve. He says that he feels stronger on the right arm and right leg. Case management working for possible inpatient rehab placement. Notably, he has low platelet counts. Patient says that he does have prior history of low platelets and had platelet transfusions of few years ago. 11/02: Denies acute complaints. He does continue to have right-sided weakness al beit slightly improved from when he got admitted. 11/04: No acute event overnight. He denies acute complaints. He continues to have right-sided weakness improved compared to when he came in. Patient is deemed fit for discharge to facility and is just awaiting Medicaid approval for acute rehab placement. Reason For Visit: HYPERTENSIVE EMERGENCY, ACUTE LEFT MIDDLE CEREBRAL Physical Exam Vital Signs: Temp Pulse Resp BP Pulse Ox 97.5 F 55 L 16 154/83 H 99 11/04/18 08:06 11/04/18 08:06 11/04/18 08:06 11/04/18 08:06 11/04/18 08:06 Intake & Output 11/03/18 11/04/18 11/05/18 06:59 06:59 06:59 Intake Total 710 1943 Output Total 675 1350 Balance 35 593 Weight 180 lb 1.883 oz 178 lb 12.718 oz General appearance: PRESENT: no acute distress, well-developed, well-nourished Head exam: PRESENT: atraumatic, normocephalic Eye exam: PRESENT: conjunctiva pink, EOMI, PERRLA. ABSENT: scleral icterus Ear exam: PRESENT: normal external ear exam Mouth exam: PRESENT: moist, tongue midline Neck exam: ABSENT: carotid bruit, JVD, lymphadenopathy, thyromegaly Respiratory exam: PRESENT: clear to auscultation bruno. ABSENT: rales, rhonchi, wheezes Cardiovascular exam: PRESENT: RRR. ABSENT: diastolic murmur, rubs, systolic murmur Pulses: PRESENT: normal dorsalis pedis pul GI/Abdominal exam: PRESENT: normal bowel sounds, soft. ABSENT: distended, guarding, mass, organolmegaly, rebound, tenderness Rectal exam: PRESENT: deferred Neurological exam: PRESENT: alert, awake, oriented to person, oriented to place, oriented to time, oriented to situation, CN II-XII grossly intact, motor sensory deficit - 3/5 RSW Results Laboratory Results: 11/02/18 04:38 11/04/18 05:35 11/04/18 05:35 Sodium 139.2 Potassium 4.3 Chloride 106 Carbon Dioxide 23 Anion Gap 10 BUN 29 H Creatinine 1.38 H Est GFR ( Amer) > 60 Est GFR (Non-Af Amer) 53 L Glucose 95 Calcium 9.2 10/27/18 10/27/18 10/27/18 13:45 22:40 22:40 Creatine Kinase 170 CK-MB (CK-2) 1.12 0.98 Troponin I < 0.012 10/28/18 10/28/18 10/28/18 04:40 04:40 10:10 Creatine Kinase 192 H 238 H CK-MB (CK-2) 1.42 Troponin I < 0.012 10/28/18 10:10 Creatine Kinase CK-MB (CK-2) 1.78 Troponin I < 0.012 Impressions: Hip/Pelvis X-Ray 10/27/18 00:00 IMPRESSION: 1. No acute findings. 2. Atherosclerosis Head CTA 10/28/18 00:00 IMPRESSION: HEAVILY CALCIFIED PLAQUE IN THE RIGHT AND LEFT INTRACRANIAL INTERNAL CAROTID ARTERY. CANNOT EXCLUDE SOME DEGREE OF STENOSIS. NO CTA EVIDENCE OF STENOSIS OR ANEURYSM OF THE [place] OF STONE. Neck CTA 10/28/18 00:00 IMPRESSION: 1. CALCIFIED PLAQUE IN THE PROXIMAL RIGHT AND LEFT INTERNAL CAROTID ARTERIES. ESTIMATED 70% STENOSIS OF THE RIGHT INTERNAL CAROTID ARTERY AND 80 TO 90% STENOSIS OF THE LEFT INTERNAL CAROTID ARTERY. 2. DENSE CALCIFICATIONS THROUGHOUT THE RIGHT VERTEBRAL ARTERY WITH VERY LITTLE CONTRAST VISIBLE IN THE LUMEN. SUSPECT HIGH-GRADE STENOSIS AND CANNOT EXCLUDE SHORT SEGMENT OCCLUSION. 3. SCATTERED CALCIFIED PLAQUE IN THE LEFT VERTEBRAL ARTERY WITH PROBABLE HIGH- GRADE STENOSIS IN THE MID VESSEL. Head CT 11/01/18 00:00 IMPRESSION: Stable appearance of the brain compared to both previous studies EVIDENCE OF ACUTE STROKE: NO. Abdomen Ultrasound 11/02/18 00:00 IMPRESSION: No acute findings. Hepatic steatosis. Mildly coarsened hepatic echotexture; differential diagnosis includes cirrhosis, as queried. Limitation. Assessment and Plan - Diagnosis (1) Neurologic deficit due to acute ischemic cerebrovascular accident (CVA) Is this a current diagnosis for this admission?: Yes Plan: Patient presented with acute right-sided weakness. Right-sided weakness appears to be improving. CT of the head was negative for acute CVA but did show old infarcts. MRI was not pursued as mentioned due to him having leg stents. CTA was remarkable for carotid stenosis. He will follow-up with vascular surgery outpatient for further recommendation and possible intervention. Continue statin and aspirin. 11/02: He does continue to have right-sided weakness albeit slightly improved from when he got admitted. Awaiting Medicaid approval for acute rehab placement. 11/04: Patient is deemed fit for discharge to facility and is just awaiting Medicaid approval for acute rehab placement. (2) Thrombocytopenia Is this a current diagnosis for this admission?: Yes Plan: 11/01: Patient does mention he has history of low platelet counts. Does have prior alcohol drinking. Will order abdominal ultrasound to evaluate for cirrhosis. Request records from PCP to check previous CBC. Will consult hematology for further recommendations. 11/02: Thrombocytopenia is chronic in nature. Questionable chronic ITP or cirrhosis likely contributing to chronic thrombocytopenia as abdominal ultrasound showed possible cirrhosis. 11/04: Platelet count stable. (3) PVD (peripheral vascular disease) Is this a current diagnosis for this admission?: Yes Plan: Prior left lower extremity stenting. Continue aspirin and statin. (4) COPD (chronic obstructive pulmonary disease) Is this a current diagnosis for this admission?: Yes Plan: Not in exacerbation. (5) Hypertensive emergency Is this a current diagnosis for this admission?: Yes Plan: Resolved. Blood pressures running in the 140/80s. Continue metoprolol, losartan and amlodipine. (6) Acute kidney injury Is this a current diagnosis for this admission?: Yes Plan: IV fluids with normal at 50 cc/hr. Repeat BMP tomorrow. 11/04: Creatinine improving with IV fluids. - Time Time Spent with patient: 25-34 minutes
[2018-11-04] MEDS: ATORVASTATIN CALCIUM 40 MG TABLET PO SCH (21:22)
[2018-11-05 04:59] LABS: ANION GAP 12 (5-19); BLOOD UREA NITROGEN 26 mg/dL (7-20); CALCIUM 9.4 mg/dL (8.4-10.2); CARBON DIOXIDE 23 mmol/L (22-30); CHLORIDE 105 mmol/L (98-107); GLUCOSE 94 mg/dL (75-110); POTASSIUM 4.1 mmol/L (3.6-5.0); SODIUM 140.3 mmol/L (137-145)
[2018-11-05 05:54] LABS: ABSOLUTE LYMPHOCYTES (AUTO) 2.9 10^3/uL (0.5-4.7); ABSOLUTE MONOCYTES (AUTO) 0.3 10^3/uL (0.1-1.4); ABSOLUTE NEUT (AUTO) 1.9 10^3/uL (1.7-8.2); BASOPHILS % (AUTO) 0.1 % (0-2); EOSINOPHILS % (AUTO) 0.2 % (0-6); HEMATOCRIT 35.3 % (37.9-51.0); HEMOGLOBIN 12.2 g/dL (13.5-17.0); LYMPHOCYTES % (AUTO) 56.3 % (13-45); MEAN CORPUSCULAR HGB CONC 34.6 g/dL (32.0-36.0); MEAN CORPUSCULAR VOLUME 110 fl (80-97); MONOCYTES % (AUTO) 5.7 % (3-13); RED BLOOD COUNT 3.21 10^6/uL (4.35-5.55); RED CELL DISTRIBUTION WIDTH 16.9 % (11.5-14.0); SEGMENTED NEUTROPHILS % (AUTO) 37.7 % (42-78); TOTAL CELLS COUNTED % (AUTO) 100 %; WHITE BLOOD COUNT 5.1 10^3/uL (4.0-10.5)
[2018-11-05 06:15] LABS: PLATELET COUNT 34 10^3/uL (150-450)
[2018-11-05] MEDS: ASPIRIN 81 MG TABLET, ENT COATED PO SCH (10:17)
[2018-11-05] MEDS: FOLIC ACID 1 MG TABLET PO SCH (10:17)
[2018-11-05] MEDS: FAMOTIDINE 20 MG TABLET PO SCH ×2 (10:17→21:38)
[2018-11-05] MEDS: CYANOCOBALAMIN (VITAMIN B-12) 1,000 MCG TABLET PO SCH (10:17)
[2018-11-05] MEDS: AMLODIPINE BESYLATE 10 MG TABLET PO SCH (10:17)
[2018-11-05] MEDS: METOPROLOL SUCCINATE 50 MG TAB.SR.24H PO SCH (10:17)
[2018-11-05] MEDS: THIAMINE HCL 100 MG TABLET PO SCH (10:18)
[2018-11-05] MEDS: CLOPIDOGREL BISULFATE 75 MG TABLET PO SCH (10:18)
[2018-11-05] MEDS: LOSARTAN POTASSIUM 50 MG TABLET PO SCH (10:18)
--- NOTE | 2018-11-05 11:49 | PDOC PROGRESS REPORT ---
Subjective Progress Note for:: 11/05/18 Subjective:: 11/01: Assumed care today. Reviewed chart and course. This is a 58-year-old male with a past medical history of COPD, PVD and prior CVA who presented with right- sided weakness and was admitted for acute CVA. His head CT was unremarkable but did show multiple old infarcts. MRI was not pursued apparently due to him having leg stents. This morning, he appears comfortable. His weakness continue to improve. He says that he feels stronger on the right arm and right leg. Case management working for possible inpatient rehab placement. Notably, he has low platelet counts. Patient says that he does have prior history of low platelets and had platelet transfusions of few years ago. 11/02: Denies acute complaints. He does continue to have right-sided weakness al beit slightly improved from when he got admitted. 11/05: No acute event overnight. He denies acute complaints. He continues to have right-sided weakness improved compared to when he came in. Patient is deemed fit for discharge to facility and is just awaiting Medicaid approval for acute rehab placement. Reason For Visit: HYPERTENSIVE EMERGENCY, ACUTE LEFT MIDDLE CEREBRAL Physical Exam Vital Signs: Temp Pulse Resp BP Pulse Ox 98.5 F 60 21 H 146/68 H 97 11/05/18 11:29 11/05/18 11:29 11/05/18 11:29 11/05/18 11:29 11/05/18 11:29 Intake & Output 11/04/18 11/05/18 11/06/18 06:59 06:59 06:59 Intake Total 1943 2215 480 Output Total 1350 765 200 Balance 593 1450 280 Weight 178 lb 12.718 oz 180 lb 15.992 oz General appearance: PRESENT: no acute distress, well-developed, well-nourished Head exam: PRESENT: atraumatic, normocephalic Eye exam: PRESENT: conjunctiva pink, EOMI, PERRLA. ABSENT: scleral icterus Ear exam: PRESENT: normal external ear exam Mouth exam: PRESENT: moist, tongue midline Neck exam: ABSENT: carotid bruit, JVD, lymphadenopathy, thyromegaly Respiratory exam: PRESENT: clear to auscultation bruno. ABSENT: rales, rhonchi, wheezes Cardiovascular exam: PRESENT: RRR. ABSENT: diastolic murmur, rubs, systolic murmur Pulses: PRESENT: normal dorsalis pedis pul GI/Abdominal exam: PRESENT: normal bowel sounds, soft. ABSENT: distended, guarding, mass, organolmegaly, rebound, tenderness Rectal exam: PRESENT: deferred Extremities exam: PRESENT: full ROM. ABSENT: calf tenderness, clubbing, pedal edema Neurological exam: PRESENT: alert, awake, oriented to person, oriented to place, oriented to time, oriented to situation, CN II-XII grossly intact, motor sensory deficit - 3/5 RSW Results Laboratory Results: 11/05/18 05:41 11/05/18 03:53 11/05/18 11/05/18 11/05/18 03:53 03:53 05:41 WBC Cancelled 5.1 RBC Cancelled 3.21 L Hgb Cancelled 12.2 L Hct Cancelled 35.3 L MCV Cancelled 110 H MCH Cancelled 38.0 H MCHC Cancelled 34.6 RDW Cancelled 16.9 H Plt Count Cancelled 34 L Seg Neutrophils % Cancelled 37.7 L Lymphocytes % Cancelled 56.3 H Monocytes % Cancelled 5.7 Eosinophils % Cancelled 0.2 Basophils % Cancelled 0.1 Absolute Neutrophils Cancelled 1.9 Absolute Lymphocytes Cancelled 2.9 Absolute Monocytes Cancelled 0.3 Absolute Eosinophils Cancelled 0.0 Absolute Basophils Cancelled 0.0 Sodium 140.3 Potassium 4.1 Chloride 105 Carbon Dioxide 23 Anion Gap 12 BUN 26 H Creatinine 1.36 H Est GFR ( Amer) > 60 Est GFR (Non-Af Amer) 53 L Glucose 94 Calcium 9.4 10/27/18 10/27/18 10/27/18 13:45 22:40 22:40 Creatine Kinase 170 CK-MB (CK-2) 1.12 0.98 Troponin I < 0.012 10/28/18 10/28/18 10/28/18 04:40 04:40 10:10 Creatine Kinase 192 H 238 H CK-MB (CK-2) 1.42 Troponin I < 0.012 10/28/18 10:10 Creatine Kinase CK-MB (CK-2) 1.78 Troponin I < 0.012 Impressions: Hip/Pelvis X-Ray 10/27/18 00:00 IMPRESSION: 1. No acute findings. 2. Atherosclerosis Head CTA 10/28/18 00:00 IMPRESSION: HEAVILY CALCIFIED PLAQUE IN THE RIGHT AND LEFT INTRACRANIAL INTERNAL CAROTID ARTERY. CANNOT EXCLUDE SOME DEGREE OF STENOSIS. NO CTA EVIDENCE OF STENOSIS OR ANEURYSM OF THE [place] OF STONE. Neck CTA 10/28/18 00:00 IMPRESSION: 1. CALCIFIED PLAQUE IN THE PROXIMAL RIGHT AND LEFT INTERNAL CAROTID ARTERIES. ESTIMATED 70% STENOSIS OF THE RIGHT INTERNAL CAROTID ARTERY AND 80 TO 90% STENOSIS OF THE LEFT INTERNAL CAROTID ARTERY. 2. DENSE CALCIFICATIONS THROUGHOUT THE RIGHT VERTEBRAL ARTERY WITH VERY LITTLE CONTRAST VISIBLE IN THE LUMEN. SUSPECT HIGH-GRADE STENOSIS AND CANNOT EXCLUDE SHORT SEGMENT OCCLUSION. 3. SCATTERED CALCIFIED PLAQUE IN THE LEFT VERTEBRAL ARTERY WITH PROBABLE HIGH- GRADE STENOSIS IN THE MID VESSEL. Head CT 11/01/18 00:00 IMPRESSION: Stable appearance of the brain compared to both previous studies EVIDENCE OF ACUTE STROKE: NO. Abdomen Ultrasound 11/02/18 00:00 IMPRESSION: No acute findings. Hepatic steatosis. Mildly coarsened hepatic echotexture; differential diagnosis includes cirrhosis, as queried. Limitation. Assessment and Plan - Diagnosis (1) Neurologic deficit due to acute ischemic cerebrovascular accident (CVA) Is this a current diagnosis for this admission?: Yes Plan: Patient presented with acute right-sided weakness. Right-sided weakness appears to be improving. CT of the head was negative for acute CVA but did show old infarcts. MRI was not pursued as mentioned due to him having leg stents. CTA was remarkable for carotid stenosis. He will follow-up with vascular surgery outpatient for further recommendation and possible intervention. Continue statin and aspirin. 11/02: He does continue to have right-sided weakness albeit slightly improved from when he got admitted. Awaiting Medicaid approval for acute rehab placement. 11/04: Patient is deemed fit for discharge to facility and is just awaiting Medicaid approval for acute rehab placement. (2) Thrombocytopenia Is this a current diagnosis for this admission?: Yes Plan: 11/01: Patient does mention he has history of low platelet counts. Does have prior alcohol drinking. Will order abdominal ultrasound to evaluate for cirrhosis. Request records from PCP to check previous CBC. Will consult hem atology for further recommendations. 11/02: Thrombocytopenia is chronic in nature. Questionable chronic ITP or cirrhosis likely contributing to chronic thrombocytopenia as abdominal ultrasound showed possible cirrhosis. 11/04: Platelet count stable. (3) PVD (peripheral vascular disease) Is this a current diagnosis for this admission?: Yes Plan: Prior left lower extremity stenting. Continue aspirin and statin. (4) COPD (chronic obstructive pulmonary disease) Is this a current diagnosis for this admission?: Yes Plan: Not in exacerbation. (5) Hypertensive emergency Is this a current diagnosis for this admission?: Yes Plan: Resolved. Blood pressures running in the 140/80s. Continue metoprolol, losartan and amlodipine. (6) Acute kidney injury Is this a current diagnosis for this admission?: Yes Plan: IV fluids with normal at 50 cc/hr. Repeat BMP tomorrow. 11/05: Creatinine continue to improve with IV fluids. - Time Time Spent with patient: 15-24 minutes
[2018-11-05] MEDS: ATORVASTATIN CALCIUM 40 MG TABLET PO SCH (21:38)
[2018-11-06 06:07] LABS: ANION GAP 8 (5-19); BLOOD UREA NITROGEN 25 mg/dL (7-20); CALCIUM 9.2 mg/dL (8.4-10.2); CARBON DIOXIDE 27 mmol/L (22-30); CHLORIDE 105 mmol/L (98-107); GLUCOSE 98 mg/dL (75-110); POTASSIUM 4.2 mmol/L (3.6-5.0); SODIUM 139.8 mmol/L (137-145)
[2018-11-06] MEDS: NORMAL SALINE 1000 ML 1,000 ML IV PRN (06:28)
[2018-11-06] MEDS: METOPROLOL SUCCINATE 50 MG TAB.SR.24H PO SCH (09:13)
[2018-11-06] MEDS: FAMOTIDINE 20 MG TABLET PO SCH ×2 (09:13→21:15)
[2018-11-06] MEDS: CYANOCOBALAMIN (VITAMIN B-12) 1,000 MCG TABLET PO SCH (09:13)
[2018-11-06] MEDS: AMLODIPINE BESYLATE 10 MG TABLET PO SCH (09:13)
[2018-11-06] MEDS: THIAMINE HCL 100 MG TABLET PO SCH (09:13)
[2018-11-06] MEDS: CLOPIDOGREL BISULFATE 75 MG TABLET PO SCH (09:13)
[2018-11-06] MEDS: ASPIRIN 81 MG TABLET, ENT COATED PO SCH (09:13)
[2018-11-06] MEDS: LOSARTAN POTASSIUM 50 MG TABLET PO SCH (09:17)
[2018-11-06] MEDS: FOLIC ACID 1 MG TABLET PO SCH (09:17)
--- NOTE | 2018-11-06 13:41 | PDOC PROGRESS REPORT ---
Subjective Progress Note for:: 11/06/18 Subjective:: 11/01: Assumed care today. Reviewed chart and course. This is a 58-year-old male with a past medical history of COPD, PVD and prior CVA who presented with right- sided weakness and was admitted for acute CVA. His head CT was unremarkable but did show multiple old infarcts. MRI was not pursued apparently due to him having leg stents. This morning, he appears comfortable. His weakness continue to improve. He says that he feels stronger on the right arm and right leg. Case management working for possible inpatient rehab placement. Notably, he has low platelet counts. Patient says that he does have prior history of low platelets and had platelet transfusions of few years ago. 11/02: Denies acute complaints. He does continue to have right-sided weakness al beit slightly improved from when he got admitted. 11/05: He denies acute complaints. He continues to have right-sided weakness improved compared to when he came in. Patient is deemed fit for discharge to facility and is just awaiting Medicaid approval for acute rehab placement. 11/06: No acute event overnight. He denies acute complaints. He is improving in terms of ambulation and ambulated the hallway using a walker. Awaiting acute rehab placement. Reason For Visit: HYPERTENSIVE EMERGENCY, ACUTE LEFT MIDDLE CEREBRAL Physical Exam Vital Signs: Temp Pulse Resp BP Pulse Ox 98.0 F 62 18 150/69 H 100 11/06/18 11:21 11/06/18 11:21 11/06/18 11:21 11/06/18 11:21 11/06/18 11:21 Intake & Output 11/05/18 11/06/18 11/07/18 06:59 06:59 06:59 Intake Total 3215 1632 720 Output Total 765 1550 600 Balance 2450 82 120 Weight 180 lb 15.992 oz 181 lb 3.52 oz General appearance: PRESENT: no acute distress, well-developed, well-nourished Head exam: PRESENT: atraumatic, normocephalic Eye exam: PRESENT: conjunctiva pink, EOMI, PERRLA. ABSENT: scleral icterus Ear exam: PRESENT: normal external ear exam Mouth exam: PRESENT: moist, tongue midline Neck exam: ABSENT: carotid bruit, JVD, lymphadenopathy, thyromegaly Respiratory exam: PRESENT: clear to auscultation bruno. ABSENT: rales, rhonchi, wheezes Cardiovascular exam: PRESENT: RRR. ABSENT: diastolic murmur, rubs, systolic murmur Pulses: PRESENT: normal dorsalis pedis pul GI/Abdominal exam: PRESENT: normal bowel sounds, soft. ABSENT: distended, guarding, mass, organolmegaly, rebound, tenderness Rectal exam: PRESENT: deferred Neurological exam: PRESENT: alert, awake, oriented to person, oriented to place, oriented to time, oriented to situation, CN II-XII grossly intact, motor sensory deficit - 3/5 RSW Results Laboratory Results: 11/05/18 05:41 11/06/18 05:13 11/06/18 05:13 Sodium 139.8 Potassium 4.2 Chloride 105 Carbon Dioxide 27 Anion Gap 8 BUN 25 H Creatinine 1.24 Est GFR ( Amer) > 60 Est GFR (Non-Af Amer) 59 L Glucose 98 Calcium 9.2 10/27/18 10/27/18 10/27/18 13:45 22:40 22:40 Creatine Kinase 170 CK-MB (CK-2) 1.12 0.98 Troponin I < 0.012 10/28/18 10/28/18 10/28/18 04:40 04:40 10:10 Creatine Kinase 192 H 238 H CK-MB (CK-2) 1.42 Troponin I < 0.012 10/28/18 10:10 Creatine Kinase CK-MB (CK-2) 1.78 Troponin I < 0.012 Impressions: Hip/Pelvis X-Ray 10/27/18 00:00 IMPRESSION: 1. No acute findings. 2. Atherosclerosis Head CTA 10/28/18 00:00 IMPRESSION: HEAVILY CALCIFIED PLAQUE IN THE RIGHT AND LEFT INTRACRANIAL INTERNAL CAROTID ARTERY. CANNOT EXCLUDE SOME DEGREE OF STENOSIS. NO CTA EVIDENCE OF STENOSIS OR ANEURYSM OF THE [place] OF STONE. Neck CTA 10/28/18 00:00 IMPRESSION: 1. CALCIFIED PLAQUE IN THE PROXIMAL RIGHT AND LEFT INTERNAL CAROTID ARTERIES. ESTIMATED 70% STENOSIS OF THE RIGHT INTERNAL CAROTID ARTERY AND 80 TO 90% STENOSIS OF THE LEFT INTERNAL CAROTID ARTERY. 2. DENSE CALCIFICATIONS THROUGHOUT THE RIGHT VERTEBRAL ARTERY WITH VERY LITTLE CONTRAST VISIBLE IN THE LUMEN. SUSPECT HIGH-GRADE STENOSIS AND CANNOT EXCLUDE SHORT SEGMENT OCCLUSION. 3. SCATTERED CALCIFIED PLAQUE IN THE LEFT VERTEBRAL ARTERY WITH PROBABLE HIGH- GRADE STENOSIS IN THE MID VESSEL. Head CT 11/01/18 00:00 IMPRESSION: Stable appearance of the brain compared to both previous studies EVIDENCE OF ACUTE STROKE: NO. Abdomen Ultrasound 11/02/18 00:00 IMPRESSION: No acute findings. Hepatic steatosis. Mildly coarsened hepatic echotexture; differential diagnosis includes cirrhosis, as queried. Limitation. Assessment and Plan - Diagnosis (1) Neurologic deficit due to acute ischemic cerebrovascular accident (CVA) Is this a current diagnosis for this admission?: Yes Plan: Patient presented with acute right-sided weakness. Right-sided weakness appears to be improving. CT of the head was negative for acute CVA but did show old infarcts. MRI was not pursued as mentioned due to him having leg stents. CTA was remarkable for carotid stenosis. He will follow-up with vascular surgery outpatient for further recommendation and possible intervention. Continue statin and aspirin. 11/02: He does continue to have right-sided weakness albeit slightly improved from when he got admitted. Awaiting Medicaid approval for acute rehab placement. 11/04: Patient is deemed fit for discharge to facility and is just awaiting Medicaid approval for acute rehab placement. (2) Acute kidney injury Is this a current diagnosis for this admission?: Yes Plan: IV fluids with normal at 50 cc/hr. Repeat BMP tomorrow. 11/05: Creatinine continue to improve with IV fluids. 11/06: Resolved. Creatinine now at baseline. (3) Thrombocytopenia Is this a current diagnosis for this admission?: Yes Plan: 11/01: Patient does mention he has history of low platelet counts. Does have prior alcohol drinking. Will order abdominal ultrasound to evaluate for cirrhosis. Request records from PCP to check previous CBC. Will consult hematology for further recommendations. 11/02: Thrombocytopenia is chronic in nature. Questionable chronic ITP or c irrhosis likely contributing to chronic thrombocytopenia as abdominal ultrasound showed possible cirrhosis. 11/04: Platelet count stable. (4) PVD (peripheral vascular disease) Is this a current diagnosis for this admission?: Yes Plan: Prior left lower extremity stenting. Continue aspirin and statin. (5) COPD (chronic obstructive pulmonary disease) Is this a current diagnosis for this admission?: Yes Plan: Not in exacerbation. (6) Hypertensive emergency Is this a current diagnosis for this admission?: Yes Plan: Resolved. Blood pressures running in the 140/80s. Continue metoprolol, l osartan and amlodipine. - Time Time Spent with patient: 25-34 minutes
[2018-11-06] MEDS: ATORVASTATIN CALCIUM 40 MG TABLET PO SCH (21:15)
[2018-11-07] MEDS: NORMAL SALINE 1000 ML 1,000 ML IV PRN (01:35)
[2018-11-07] MEDS: CLOPIDOGREL BISULFATE 75 MG TABLET PO SCH (09:04)
[2018-11-07] MEDS: FAMOTIDINE 20 MG TABLET PO SCH (09:04)
[2018-11-07] MEDS: LOSARTAN POTASSIUM 50 MG TABLET PO SCH (09:04)
[2018-11-07] MEDS: ASPIRIN 81 MG TABLET, ENT COATED PO SCH (09:04)
[2018-11-07] MEDS: CYANOCOBALAMIN (VITAMIN B-12) 1,000 MCG TABLET PO SCH (09:04)
[2018-11-07] MEDS: FOLIC ACID 1 MG TABLET PO SCH (09:04)
[2018-11-07] MEDS: THIAMINE HCL 100 MG TABLET PO SCH (09:05)
[2018-11-07] MEDS: AMLODIPINE BESYLATE 10 MG TABLET PO SCH (09:05)
[2018-11-07] MEDS ORDERED: METOPROLOL SUCCINATE 50 MG TAB.SR.24H PO SCH (10:00)
--- NOTE | 2018-11-07 11:01 | PDOC TRANSFER SUMMARY ---
General - Admit/Disc Date/PCP Admission Date/Primary Care Provider: 10/27/18 21:01 ALEXEI FUENTES MD Discharge Date: 11/07/18 - Discharge Diagnosis (1) Neurologic deficit due to acute ischemic cerebrovascular accident (CVA) Is this a current diagnosis for this admission?: Yes (2) Acute kidney injury Is this a current diagnosis for this admission?: Yes (3) Thrombocytopenia Is this a current diagnosis for this admission?: Yes (4) PVD (peripheral vascular disease) Is this a current diagnosis for this admission?: Yes (5) COPD (chronic obstructive pulmonary disease) Is this a current diagnosis for this admission?: Yes (6) Hypertensive emergency Is this a current diagnosis for this admission?: Yes - Additional Information Resuscitation Status: Full Code Prescriptions: Amlodipine Besylate [Norvasc 10 mg Tablet] 10 mg PO DAILY #30 tablet Aspirin [Ecotrin 81 mg EC Tablet] 81 mg PO DAILY #30 tabec Atorvastatin Calcium [Lipitor 40 mg Tablet] 40 mg PO QHS #30 tablet Losartan Potassium [Cozaar 50 mg Tablet] 50 mg PO DAILY #30 tablet Metoprolol Succinate [Toprol Xl 50 mg Tab.sr] 50 mg PO DAILY #30 tab.sr.24h Home Medications: Amlodipine Besylate [Norvasc 10 mg Tablet] 10 mg PO DAILY #30 tablet 11/07/18 Aspirin [Ecotrin 81 mg EC Tablet] 81 mg PO DAILY #30 tabec 11/07/18 Atorvastatin Calcium [Lipitor 40 mg Tablet] 40 mg PO QHS #30 tablet 11/07/18 Losartan Potassium [Cozaar 50 mg Tablet] 50 mg PO DAILY #30 tablet 11/07/18 Metoprolol Succinate [Toprol Xl 50 mg Tab.sr] 50 mg PO DAILY #30 tab.sr.24h 11/07/18 History of Present Illness Admission Date/PCP: 10/27/18 21:01 ALEXEI FUENTES MD Patient complains of: RSW History of Present Illness: Admitting hospitalist's H&P: DARIA PATEL is a 58 year old [id number] male who presents the emergency room with a 1 day history of right-sided weakness. He admits that at about 3 PM yesterday afternoon he was at work and noticed that his right leg was weak and not supporting him correctly as he walked. He pushed on to finish the rest of the day at work noticing that he had also developed some lifting weakn ess in his right arm. The symptoms persisted after work and he went home and eventually went to bed waking this morning with worse weakness of the right upper and lower extremities then previous. He tried to get up out of bed and fell without injury. He admits to not taking his high blood pressure medication for the past few weeks. He denies prior similar symptoms of focal weakness and has not identified any aggravating or ameliorating factors for his weakness. Hospital Course Hospital Course: This is a 58-year-old male with a past medical history of COPD, PVD and prior CVA who presented with right-sided weakness and was admitted for acute CVA. His head CT was unremarkable but did show multiple old infarcts. MRI was not pursued apparently due to him having leg stents. He was also noted to have uncontrolled hypertension and was placed on a nicardipine infusion to control his severe hypertension. He was started on aspirin and statin. He was also started on amlodipine, metoprolol and losartan. He did have slow but gradual improvement of his right sided weakness. He was evaluated by PT and by rehab (Dr. Mcintyre). He will be going to inpatient/acute rehab. CTA showed a calficied plaque on the right and left intracranial carotid artery. He will be given an appt with neurosurgery for further outpatient evaluation and possible intervention if needed. He will be discharged to [facility]. Physical Exam Vital Signs: Temp Pulse Resp BP Pulse Ox 98.4 F 55 L 18 155/69 H 96 11/07/18 07:52 11/07/18 07:52 11/07/18 07:52 11/07/18 07:52 11/07/18 07:52 Intake & Output 11/06/18 11/07/18 11/08/18 06:59 06:59 06:59 Intake Total 1632 2360 360 Output Total 1550 1675 Balance 82 685 360 Weight 181 lb 3.52 oz 180 lb 1.883 oz General appearance: PRESENT: no acute distress, well-developed, well-nourished Head exam: PRESENT: atraumatic, normocephalic Eye exam: PRESENT: conjunctiva pink, EOMI, PERRLA. ABSENT: scleral icterus Ear exam: PRESENT: normal external ear exam Mouth exam: PRESENT: moist, tongue midline Neck exam: ABSENT: carotid bruit, JVD, lymphadenopathy, thyromegaly Respiratory exam: PRESENT: clear to auscultation bruno. ABSENT: rales, rhonchi, wheezes Cardiovascular exam: PRESENT: RRR. ABSENT: diastolic murmur, rubs, systolic murmur Pulses: PRESENT: normal dorsalis pedis pul GI/Abdominal exam: PRESENT: normal bowel sounds, soft. ABSENT: distended, gua rding, mass, organolmegaly, rebound, tenderness Rectal exam: PRESENT: deferred Neurological exam: PRESENT: alert, awake, oriented to person, oriented to place, oriented to time, oriented to situation, CN II-XII grossly intact, motor sensory deficit - 3/5 RSW Results Laboratory Results: 11/05/18 05:41 11/06/18 05:13 10/27/18 10/27/18 10/27/18 13:45 22:40 22:40 Creatine Kinase 170 CK-MB (CK-2) 1.12 0.98 Troponin I < 0.012 10/28/18 10/28/18 10/28/18 04:40 04:40 10:10 Creatine Kinase 192 H 238 H CK-MB (CK-2) 1.42 Troponin I < 0.012 10/28/18 10:10 Creatine Kinase CK-MB (CK-2) 1.78 Troponin I < 0.012 Impressions: Hip/Pelvis X-Ray 10/27/18 00:00 IMPRESSION: 1. No acute findings. 2. Atherosclerosis Head CTA 10/28/18 00:00 IMPRESSION: HEAVILY CALCIFIED PLAQUE IN THE RIGHT AND LEFT INTRACRANIAL INTERNAL CAROTID ARTERY. CANNOT EXCLUDE SOME DEGREE OF STENOSIS. NO CTA EVIDENCE OF STENOSIS OR ANEURYSM OF THE [place] OF STONE. Neck CTA 10/28/18 00:00 IMPRESSION: 1. CALCIFIED PLAQUE IN THE PROXIMAL RIGHT AND LEFT INTERNAL CAROTID ARTERIES. ESTIMATED 70% STENOSIS OF THE RIGHT INTERNAL CAROTID ARTERY AND 80 TO 90% STENOSIS OF THE LEFT INTERNAL CAROTID ARTERY. 2. DENSE CALCIFICATIONS THROUGHOUT THE RIGHT VERTEBRAL ARTERY WITH VERY LITTLE CONTRAST VISIBLE IN THE LUMEN. SUSPECT HIGH-GRADE STENOSIS AND CANNOT EXCLUDE SHORT SEGMENT OCCLUSION. 3. SCATTERED CALCIFIED PLAQUE IN THE LEFT VERTEBRAL ARTERY WITH PROBABLE HIGH- GRADE STENOSIS IN THE MID VESSEL. Head CT 11/01/18 00:00 IMPRESSION: Stable appearance of the brain compared to both previous studies EVIDENCE OF ACUTE STROKE: NO. Abdomen Ultrasound 11/02/18 00:00 IMPRESSION: No acute findings. Hepatic steatosis. Mildly coarsened hepatic echotexture; differential diagnosis includes cirrhosis, as queried. Limitation. Qualifiers - * PATIENT BEING DISCHARGED WITH ANY OF THE FOLLOWING DIAGNOSIS: Stroke Stroke Pt being discharged on Anti-thrombolytic therapy?: No Reason(s) for not prescribing Anti-thrombolytic therapy:: Procedure not indicated Stroke Pt being discharged on Anti-coagulation therapy?: No Reason(s) for not prescribing Anti-coagulation therapy:: Procedure not indicated Stroke Pt being discharged on Statins?: Yes [place] Pt being discharged on Aspirin therapy?: Yes Acute Heart Failure - Is this a Heart Failure Patient?: No LVEF < 40%?: No- if no continue to question #3 e) For LVEF <35%, discharged on Aldosterone antagonist?: N/A (LVEF > or = 35%)
[2018-11-07 13:04] VITALS: BP 148/66
== END 2018-11-07 13:20 | disposition other institution (70) | DRG 65 ==
LOC: ER 13:00 → EH 21:01 → 3W 10-28 05:30
PROVIDERS: ADMIT Emergency Medicine; ATTEND Emergency Medicine
DX: I63.233 Cerebral infarction due to unspecified occlusion or stenosis of bilateral carotid arteries (principal); I67.4 Hypertensive encephalopathy; G81.91 Hemiplegia, unspecified affecting right dominant side; N17.9 Acute kidney failure, unspecified; Z91.14 Patient's other noncompliance with medication regimen; I10 Essential (primary) hypertension; F17.200 Nicotine dependence, unspecified, uncomplicated; F10.21 Alcohol dependence, in remission; K70.30 Alcoholic cirrhosis of liver without ascites; R29.6 Repeated falls; Z91.81 History of falling; E66.9 Obesity, unspecified; D69.59 Other secondary thrombocytopenia; J44.9 Chronic obstructive pulmonary disease, unspecified; I70.203 Unspecified atherosclerosis of native arteries of extremities, bilateral legs
CPT/HCPCS: 36415; 70450; 70496; 70498; 76700; 80048; 80053; 80061; 81001; 82550; 82553; 82607; 82746; 83036; 83735; 84439; 84443; 84481; 84484; 85025; 85027; 85610; 85730; 93005; 93010; 93306; 99285; J0360; J2300; J3411; J3420; J3475; J3490; J7030; L4386